=== PATIENT | male | born 1945 | race African-American/Black ===

== ENCOUNTER → 2016-10-14 | Outpatient (CLI) | payer MEDICARE, OTHER ==
[~2016-10-14] MED LIST: REGADENOSON 0.4 MG/5 ML DISP.SYRIN. IV ONE
--- NOTE | 2016-10-14 11:23 | CARD ---
APPROVED REPORT EXAM: Two-dimensional and M-mode echocardiogram with Doppler and color Doppler. Other Information Quality : GoodHR: 64bpm Rhythm : NSR INDICATION Shortness of breath RISK FACTORS Hypertension Hyperlipidemia Family History 2D DIMENSIONS RVDd3.3 (2.9-3.5cm)Left Atrium(2D)3.4 (1.6-4.0cm) IVSd1.5 (0.7-1.1cm)Aortic Root(2D)3.4 (2.0-3.7cm) LVDd4.5 (3.9-5.9cm)LVOT Diameter2.3 (1.8-2.4cm) PWd1.2 (0.7-1.1cm)LVDs3.3 (2.5-4.0cm) FS (%) 28.0 %SV51.6 ml LVEF(%)54.4 (>50%) Aortic Valve AoV Peak Fredy.106.3cm/sAoV VTI24.9cm AO Peak GR.4.5mmHgLVOT Peak Fredy.87.8cm/s AO Mean GR.3mmHgAVA (VMAX)3.53cm2 Mitral Valve MV E Fltplsrw91.9cm/sMV E Peak Gr.3mmHg MV DECEL [id number] A Raxqkjhp95.6cm/s MV E Mean Gr.1mmHgE/A Ratio0.9 MV A Zmhbkcls967hz Pulmonary Valve PV Peak Bijykqlq76.0cm/s Tricuspid Valve TR P. Gjynwatd940fj/sTR Peak Gr.23mmHg Pulmonary Vein S1 Gqlazdnl41.0cm/sD2 Mhblcwxp79.5cm/s PVa ikcvqpyg76nsje LEFT VENTRICLE The left ventricle is normal size. There is mild concentric left ventricular hypertrophy. The left ve ntricular systolic function is normal. The Ejection Fraction is 55-60%. There is normal LV segmental wall motion. Transmitral Doppler flow pattern is Grade I-abnormal relaxation pattern. RIGHT VENTRICLE The right ventricle is normal size. There is normal right ventricular wall thickness. The right ventr icular systolic function is normal. ATRIA The left atrium size is normal. The right atrium size is normal. The interatrial septum is intact wit h no evidence for an atrial septal defect or patent foramen ovale as noted on 2-D or Doppler imaging. AORTIC VALVE The aortic valve is mildly sclerotic. The aortic valve is trileaflet. Doppler and Color Flow revealed no significant aortic regurgitation. There is no significant aortic valvular stenosis. MITRAL VALVE Mitral annular calcification is mild. The mitral valve leaflets are thickened. There is no evidence o f mitral valve prolapse. There is no mitral valve stenosis. Doppler and Color Flow revealed mild mitr al regurgitation. TRICUSPID VALVE Doppler and Color Flow revealed trace tricuspid regurgitation. The pulmonary artery systolic pressure is estimated at 26 mmHg. There is no pulmonary hypertension. PULMONIC VALVE Doppler and Color Flow revealed mild pulmonic valvular regurgitation. There is no pulmonic valvular s tenosis. GREAT VESSELS The aortic root is normal in size. The ascending aorta is normal in size. The pulmonary artery is nor mal. The IVC is normal in size and collapses >50% with inspiration. PERICARDIAL EFFUSION There is no evidence of significant pericardial effusion. Critical Notification Critical Value: No <Conclusion> The left ventricular systolic function is normal. The Ejection Fraction is 55-60%. There is normal LV segmental wall motion. Transmitral Doppler flow pattern is Grade I-abnormal relaxation pattern. Mild mitral regurgitation. Trace tricuspid regurgitation. The pulmonary artery systolic pressure is estimated at 26 mmHg. There is no evidence of significant pericardial effusion.
--- NOTE | 2016-10-14 15:06 | RAD ---
APPROVED REPORT Test Type: Pharmacological Stress Nurse/Tech: dustin pack Test Indications: CHEST PAIN Cardiac History: HTN, SEE EHR Medications: SEE EHR Medical History: PAST SMOKER, SEE EHR Resting ECG: SR Resting Heart Rate: 60 bpm Resting Blood Pressure: 150/72mmHg Pretest Chest Pain: No chest pain Nurse/Tech Notes LUNG SOUNDS CLEAR, S1S2 WNL. Consent: The procedure was explained to the patient in lay terms. Informed consent was witnessed. Luis eout was entered into [employer]. History and Stress Test performed by RT Devyn CarpenterR) (N) Pharm. Details Pharmacologic stress testing was performed using 0.4mg per 5ml of regadenoson given intravenously ove r 7-10 seconds. Stress Symptoms NONE STATED. POST EXERCISE Reason for Termination: Infusion complete Max HR: 89 bpm Max Blood Pressure: 150/72mmHg Chest Pain: No. Arrhythmia: No. ST Change: No. INTERPRETATION Stress EKG Conclusion: Baseline EKG showed sinus rhythm with left ventricular hypertrophy. Nondiagnos tic changes at peak stress. No arrhythmias. Imaging Protocol IMAGE PROTOCOL: Rest Tc-99m/stress Tc-99m 1 day Rest: Stress: Viability: Radiopharm.Tc99m NhuvwgbcfUv42t Sestamibi Dose10.2mCi 34.2mCi Duration 15min. 10min. Img Date 10/14/2016 10/14/2016 Inj-Img Ooxn12zld. 90min. Rest Admin Site:IV - Left AntecubitalAdministrator:RT Jayden (R)(N) Stress Admin Site: IV - Left AntecubitalAdministrator: RT Jayden (R)(N) STRESS DATA End Diast. Vol.101.0mlAv. Heart Rate80.0bpm End Syst. Vol.38.0mlCO Index BSA0.0L/min Myocardial Jqsq440.0gEject. Wjlpfxdn67.0% Stress Rates Pk. Fill Rate2.26EDV/secLVtime Pk. Fill 175.55msec Pk. Empty Rate4.31ESV/secLVtime Pk. Aujqo147.45msec 03/24 Pk. Fill0.62EDV/sec Stress Scores Regional WT1.00Summed WT10.00 Regional WM0.00Summed WM5.00 Study quality was good. Left Ventricular size was Normal at Rest and Stress. LV Perfusion Scintigraphic images showed moderate reversible defect involving the lateral wall extending into the basal inferior and inferolateral castelan consistent with ischemia. Wall Motion Normal left ventricle systolic function with ejection fraction calculated at 62%. LV Perf. Quant 17 Seg. SSS17.00 17 Seg. SRS10.00 17 Seg. SDS7.00 Stress Defect Extent (% LAD)0.60Rest Defect Extent (% LAD)0.00Rev. Defect Extent (% LAD)0.60 Stress Defect Extent (% LCX) 87.50Rest Defect Extent (% LCX)65.00Rev. Defect Extent (% LCX)62.50 Stress Defect Extent (% RCA)21.10Rest Defect Extent (% RCA)6.70Rev. Defect Extent (% RCA)5.60 Stress Defect Extent (% JULIANA)31.30Rest Defect Extent (% JULIANA)15.40Rev. Defect Extent (% JULIANA)21.30 Conclusion 1. Regadenoson cardioisotope stress test showed moderate amount of ischemia involving the lateral wal l extending into the basal inferior and inferolateral castelan. 2. Normal left ventricular systolic function with ejection fraction calculated at 62%. 3. Intermediate risk for cardiac events.
== END | disposition home or self-care (01) ==
LOC: ECHO 08:04
PROVIDERS: ATTEND Internal Medicine Cardiovascular Disease
DX: I08.1 Rheumatic disorders of both mitral and tricuspid valves (principal); R06.02 Shortness of breath
CPT/HCPCS: 78452; 93017; 93306; 96374; 96375; 96376; A9500; J2785

== ENCOUNTER → 2016-11-20 | Outpatient (CLI) | payer MEDICARE, OTHER ==
[2016-11-18 15:00] VITALS: BP 129/55
[~2016-11-20] MED LIST changes: +ASPI-630 PO; +ASPI325T11 PO; +ATOR20TA58 PO; +CHOL10003 PO; +FURO20TA3 PO; +METO25TA4 PO; +OMEP40CA5 PO; +OXYC1TAB7 PO; +POTA20TA4 PO; -REGADENOSON 0.4 MG/5 ML DISP.SYRIN. IV ONE; +VALS1TAB3 PO
[2016-11-20 07:54] LABS: BASO % 0 % (0-3); EOS % 3 % (0-3); HEMOGLOBIN 7.3 g/dL (13.0-17.5); LYMPH # 0.6 x10^3/uL (1.0-4.8); LYMPH % 9 % (24-48); MEAN CORPUSCULAR HEMOGLOBIN 28 pg (25-35); MEAN CORPUSCULAR HGB CONC 32 g/dL (31-37); MEAN CORPUSCULAR VOLUME 90 fL (79-100); MONO % 12 % (0-9); NEUT % 76 % (31-73); PLATELET COUNT 336 x10^3/uL (140-400); RED BLOOD COUNT 2.57 x10^6/uL (4.30-5.70); RED CELL DISTRIBUTION WIDTH 13.2 % (11.5-14.5); WHITE BLOOD COUNT 7.4 x10^3/uL (4.0-11.0)
[2016-11-20 08:09] LABS: ALBUMIN 2.6 g/dL (3.4-5.0); ALBUMIN/GLOBULIN RATIO 0.7 (1.0-1.7); CALCIUM 7.9 mg/dL (8.5-10.1); CREATININE 1.3 mg/dL (0.7-1.3); GFR 65.5; POTASSIUM 3.4 mmol/L (3.5-5.1); TOTAL BILIRUBIN 0.8 mg/dL (0.2-1.0); TOTAL PROTEIN 6.6 g/dL (6.4-8.2)
== END ==
LOC: SPEC 07:24
PROVIDERS: ATTEND Family Medicine
DX: I25.10 Atherosclerotic heart disease of native coronary artery without angina pectoris (principal); Z79.899 Other long term (current) drug therapy
CPT/HCPCS: 36415; 80053; 85025

== ENCOUNTER → 2016-12-04 | Outpatient (CLI) | payer MEDICARE, OTHER ==
[2016-11-18 15:00] VITALS: BP 129/55
--- NOTE | 2016-12-04 13:26 | RAD ---
Indication postop. Protocol study. Frontal and lateral views of the chest were obtained. Comparison is made to an exam 11/16/2016. Postoperative changes are noted. Heart size is slightly enlarged but unchanged. There is no congestive heart failure. Aeration of the lungs has improved. No unexpected finding is seen. No acute parenchymal infiltrate is apparent. There is no pleural fluid or pneumothorax. IMPRESSION: No acute finding seen in the chest
== END | disposition home or self-care (01) ==
LOC: RAD 12:41
PROVIDERS: ATTEND Thoracic Surgery (Cardiothoracic Vascular Surgery)
DX: Z01.818 Encounter for other preprocedural examination (principal); Z95.1 Presence of aortocoronary bypass graft
CPT/HCPCS: 71020

== ENCOUNTER → 2017-07-15 | Day surgery (SDC) | payer MEDICARE, OTHER ==
[~2017-07-15] MED LIST changes: -ASPI-630 PO; -ASPI325T11 PO; -ATOR20TA58 PO; -CHOL10003 PO; -FURO20TA3 PO; +LIDOCAINE 1% PF 2 ML VIAL. ID; +LIDOCAINE 2% PF Vial for OR 5 ML VIAL.; -METO25TA4 PO; +MORPHINE SULFATE 4 MG/ML DISP.SYRIN. IV; -OMEP40CA5 PO; +ONDANSETRON PF 4 MG/2 ML VIAL. IV; -OXYC1TAB7 PO; -POTA20TA4 PO; +PROCHLORPERAZINE 10 MG/2 ML VIAL. IV; +PROPOFOL 40 ML IV; -VALS1TAB3 PO; +fentaNYL PF VIAL 100 MCG/2 ML VIAL IV
[2017-07-15] MEDS: IV RINGERS,LACTATED 1000ML 1,000 ML IV (12:47)
== END | disposition home or self-care (01) ==
LOC: ENDOS 12:06
DX: K62.1 Rectal polyp (principal); K64.0 First degree hemorrhoids; K62.89 Other specified diseases of anus and rectum; K57.30 Diverticulosis of large intestine without perforation or abscess without bleeding; I10 Essential (primary) hypertension; E78.5 Hyperlipidemia, unspecified; J44.9 Chronic obstructive pulmonary disease, unspecified; K21.9 Gastro-esophageal reflux disease without esophagitis; D50.9 Iron deficiency anemia, unspecified; I25.10 Atherosclerotic heart disease of native coronary artery without angina pectoris; E78.00 Pure hypercholesterolemia, unspecified; Z79.82 Long term (current) use of aspirin; Z95.1 Presence of aortocoronary bypass graft; Z87.891 Personal history of nicotine dependence; Z82.49 Family history of ischemic heart disease and other diseases of the circulatory system; Z98.41 Cataract extraction status, right eye; Z98.42 Cataract extraction status, left eye; Z86.79 Personal history of other diseases of the circulatory system; Z95.5 Presence of coronary angioplasty implant and graft; M19.012 Primary osteoarthritis, left shoulder; M19.011 Primary osteoarthritis, right shoulder; M17.0 Bilateral primary osteoarthritis of knee; M19.042 Primary osteoarthritis, left hand; M19.041 Primary osteoarthritis, right hand
CPT/HCPCS: 45378; 45380; 88305; J2704

== ENCOUNTER → 2017-10-05 | Outpatient (CLI) | payer OTHER, MEDICARE ==
[2017-10-05 11:08] LABS: ADD MAN DIFF? NO
[2017-10-05 11:14] LABS: BASO % 1 % (0-3); EOS # 0.1 x10^3/uL (0.0-0.7); EOS % 3 % (0-3); HEMATOCRIT 32.8 % (39.0-53.0); HEMOGLOBIN 10.5 g/dL (13.0-17.5); LYMPH # 0.5 x10^3/uL (1.0-4.8); LYMPH % 9 % (24-48); MEAN CORPUSCULAR HEMOGLOBIN 25 pg (25-35); MEAN CORPUSCULAR HGB CONC 32 g/dL (31-37); MEAN CORPUSCULAR VOLUME 77 fL (79-100); MONO # 0.7 x10^3/uL (0.0-1.1); MONO % 12 % (0-9); NEUT # 4.4 x10^3uL (1.8-7.7); NEUT % 77 % (31-73); PLATELET COUNT 328 x10^3/uL (140-400); RED BLOOD COUNT 4.25 x10^6/uL (4.30-5.70); RED CELL DISTRIBUTION WIDTH 28.6 % (11.5-14.5); WHITE BLOOD COUNT 5.7 x10^3/uL (4.0-11.0)
[2017-10-05 11:31] LABS: ANION GAP 9 (6-14); BLOOD UREA NITROGEN 11 mg/dL (8-26); CALCIUM 8.6 mg/dL (8.5-10.1); CARBON DIOXIDE 26 mmol/L (21-32); CHLORIDE 102 mmol/L (98-107); CREATININE 1.6 mg/dL (0.7-1.3); GFR 51.4; GLUCOSE 96 mg/dL (70-99); POTASSIUM 4.3 mmol/L (3.5-5.1); SODIUM 137 mmol/L (136-145)
[2017-10-05 11:39] LABS: ANISOCYTOSIS MOD; PLT ESTIMATE ADEQUATE (ADEQUATE); POLYCHROMASIA PRESENT
== END | disposition home or self-care (01) ==
LOC: LAB 10:56
DX: I25.10 Atherosclerotic heart disease of native coronary artery without angina pectoris (principal); K92.2 Gastrointestinal hemorrhage, unspecified; I13.0 Hypertensive heart and chronic kidney disease with heart failure and stage 1 through stage 4 chronic kidney disease, or unspecified chronic kidney disease; I50.32 Chronic diastolic (congestive) heart failure; N18.3 Chronic kidney disease, stage 3 (moderate); E78.5 Hyperlipidemia, unspecified; E78.00 Pure hypercholesterolemia, unspecified; D64.9 Anemia, unspecified; J44.9 Chronic obstructive pulmonary disease, unspecified; E78.1 Pure hyperglyceridemia; K21.9 Gastro-esophageal reflux disease without esophagitis
CPT/HCPCS: 36415; 80048; 85025

== ENCOUNTER 2017-11-27 08:51 | Emergency (ER) | payer MEDICARE, OTHER ==
[~2017-11-27] VITALS: Ht 180.3 cm; Wt 87.6 kg
[~2017-11-27 08:51] MED LIST changes: +ASPI-612 PO; +ASPI-630 PO; +ASPI325T11 PO; +ASPI325T8 PO; +ATOR20TA58 PO; +ATOR40TA59 PO; +BUDE10.2 IH; +CHOL10003 PO; +FERR-36 PO; +FERR325T72 PO; +FURO20TA3 PO; +IPRA3AMP29 NEB; +ISOS30TA4 PO; -LIDOCAINE 1% PF 2 ML VIAL. ID; -LIDOCAINE 2% PF Vial for OR 5 ML VIAL.; +LOSA50TA2 PO; +METO10TA81 PO; +METO25TA4 PO; +METO50TA29 PO; -MORPHINE SULFATE 4 MG/ML DISP.SYRIN. IV; +NITR0.4T SL; +OMEP40CA5 PO; -ONDANSETRON PF 4 MG/2 ML VIAL. IV; +OXYC1TAB7 PO; +POTA20TA4 PO; +PROAIR HFA8.5 GM INH; -PROCHLORPERAZINE 10 MG/2 ML VIAL. IV; -PROPOFOL 40 ML IV; +Pantoprazole PO; +RANO500T2 PO; +TAMS0.4C97 PO; +TICA90TA PO; +TIOT18CA IH; +VALS1TAB3 PO; -fentaNYL PF VIAL 100 MCG/2 ML VIAL IV
[2017-11-27 08:55] VITALS: BP 142/78
[2017-11-27] MEDS ORDERED: ACETAMINOPHEN 500 MG TABLET PO ONE (09:15)
[2017-11-27] MEDS ORDERED: diazePAM 5 MG TABLET PO ONE (09:15)
[2017-11-27] MEDS ORDERED: DIAZ5TAB PO (09:26)
[2017-11-27] MEDS ORDERED: DICL100G18 TP (09:26)
--- NOTE | 2017-11-27 09:27 | PHYS DOC ---
Past Medical History Past Medical History: CAD, High Cholesterol, Hypertension Additional Past Medical Histor: possible [place] Past Surgical History: Coronary Bypass Surgery Additional Past Surgical Histo: right knee surgery, cardiac cath with stent Alcohol Use: None Drug Use: None Adult General Chief Complaint Chief Complaint: BACK PAIN - NO INJURY HPI HPI Patient is a 72 year old male with history of CAD, hypertension, high cholesterol, who presents today complaining of 7 out of 10 throbbing bilateral low back pain that has been going on intermittently for 6 days. Patient denies any known injury, denies any pain radiating to bilateral lower extremities. Denies any loss of bowel bladder function. Denies any weakness. He states the pain is worse on palpation of the lower back. He states he feels like he keeps getting spasms on and off. He states he has tried taking Tylenol with some relief. He states is also been using gypy-usn-vzoyqzz rubbing agents which are relieving his pain. PCP Fausto Padilla Review of Systems Review of Systems Constitutional: Denies fever or chills [] Eyes: Denies change in visual acuity, redness, or eye pain [] HENT: Denies nasal congestion or sore throat [] Respiratory: Denies cough or shortness of breath [] Cardiovascular: No additional information not addressed in HPI [] GI: Denies abdominal pain, nausea, vomiting, bloody stools or diarrhea [] : Denies dysuria or hematuria [] Musculoskeletal: Reports bilateral low back pain with spasms. Integument: Denies rash or skin lesions [] Neurologic: Denies headache, focal weakness or sensory changes [] ] All other systems were reviewed and found to be within normal limits, except as documented in this note. Current Medications Current Medications Current Medications Medications (Trade) Dose Ordered Sig/[facility] Start Time Stop Time Status Last Admin Dose Admin Acetaminophen (Tylenol) 1,000 mg 1X ONCE 11/27/17 09:15 11/27/17 09:16 DC Diazepam (Valium) 5 mg 1X ONCE 11/27/17 09:15 11/27/17 09:16 DC Allergies Allergies Allergies Coded Allergies Type Severity Reaction Last Updated Verified No Known Drug Allergies 07/15/17 No Physical Exam Physical Exam Constitutional: Well developed, well nourished, no acute distress, non-toxic appearance. [] HENT: Normocephalic, atraumatic, bilateral external ears normal, oropharynx moist, no oral exudates, nose normal. [] Eyes: PERRLA, EOMI, conjunctiva normal, no discharge. [] Neck: Normal range of motion, no tenderness, supple, no stridor. [] Cardiovascular:Heart rate regular rhythm, no murmur [] Lungs & Thorax: Bilateral breath sounds clear to auscultation [] Abdomen: Bowel sounds normal, soft, no tenderness, no masses, no pulsatile masses. [] Skin: Warm, dry, no erythema, no rash. [] Back: Diffuse paraspinal muscle tenderness bilateral lumbar spine, no midline lumbar spine tenderness, no CVA tenderness. [] Extremities: No tenderness, no cyanosis, no clubbing, ROM intact, no edema. [] Neurologic: Alert and oriented X 3, normal motor function, normal sensory function, no focal deficits noted. [] Psychologic: Affect normal, judgement normal, mood normal. [] Current Patient Data Vital Signs Vital Signs Date Time Temp Pulse Resp B/P (MAP) Pulse Ox O2 Delivery O2 Flow Rate FiO2 11/27/17 08:55 97.6 87 14 142/78 (99) 97 Room Air 97.6 EKG EKG [] Radiology/Procedures Radiology/Procedures [] Course & Med Decision Making Course & Med Decision Making Pertinent Labs and Imaging studies reviewed. (See chart for details) This is a 72-year-old male patient presented to the ED today with low back pain with spasms that has been going on for 6 days intermittently. Patient has no cauda equina syndrome symptoms. Patient to be discharged with Voltaren cream, Valium and instructed to continue taking Tylenol as needed for pain. Follow-up with primary care doctor in 1-2 weeks. Dragon Disclaimer Dragon Disclaimer This electronic medical record was generated, in whole or in part, using a voice recognition dictation system. Departure Departure Impression: Primary Impression: Low back pain Additional Impression: Spasm of muscle of lower back Disposition: 01 HOME, SELF-CARE Condition: STABLE Referrals: FAUSTO PADILLA MD (PCP) Follow-up next week Patient Instructions: Back Exercises, Generic, SportsMed, Back Pain, Adult Additional Instructions: You were evaluated in the emergency room for back pain with spasms. Continue taking Tylenol as needed for pain. Use the rest of the prescribed medications as ordered. Follow-up with your doctor next week. Come back to the ED at any point symptoms worsen. Scripts Diazepam (VALIUM) 5 Mg Tablet 5 MG PO TID, #15 TAB Prov: DORENE SANTOS APRN 11/27/17 Diclofenac Sodium (VOLTAREN) 100 Gm Gel..gram. 1 GM TP QID, #100 GM 2 Refills Prov: DORENE SANTOS APRN 11/27/17 Problem Qualifiers Primary Impression: Low back pain Chronicity: acute Back pain laterality: bilateral Sciatica presence: without sciatica Qualified Codes: M54.5 - Low back pain DORENE SANTOS APRN Nov 27, 2017 09:27
== END 2017-11-27 09:43 | disposition home or self-care (01) ==
LOC: ER 08:51
DX: M62.830 Muscle spasm of back (principal); E78.00 Pure hypercholesterolemia, unspecified; I10 Essential (primary) hypertension; I25.10 Atherosclerotic heart disease of native coronary artery without angina pectoris; I25.2 Old myocardial infarction; Z95.5 Presence of coronary angioplasty implant and graft; Z95.1 Presence of aortocoronary bypass graft
CPT/HCPCS: 99283

== ENCOUNTER 2018-02-21 11:42 | Emergency (ER) | payer MEDICARE, OTHER ==
[~2018-02-21] VITALS: Ht 180.3 cm; Wt 83.5 kg
[~2018-02-21 11:42] MED LIST changes: +DIAZ5TAB PO; +DICL100G18 TP; +LOSA-73 PO; -LOSA50TA2 PO
[2018-02-21] MEDS ORDERED: IV NORMAL SALINE 1000ML BAG 1,000 ML IV ONE (12:30)
--- NOTE | 2018-02-21 12:40 | EKG ---
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
[2018-02-21 12:42] LABS: BASO % 1 % (0-3); EOS # 0.2 x10^3/uL (0.0-0.7); EOS % 4 % (0-3); HEMATOCRIT 33.4 % (39.0-53.0); HEMOGLOBIN 11.2 g/dL (13.0-17.5); LYMPH # 0.4 x10^3/uL (1.0-4.8); LYMPH % 10 % (24-48); MEAN CORPUSCULAR HEMOGLOBIN 31 pg (25-35); MEAN CORPUSCULAR HGB CONC 34 g/dL (31-37); MEAN CORPUSCULAR VOLUME 93 fL (79-100); MONO # 0.5 x10^3/uL (0.0-1.1); MONO % 13 % (0-9); NEUT # 2.9 x10^3uL (1.8-7.7); NEUT % 72 % (31-73); PLATELET COUNT 239 x10^3/uL (140-400); RED BLOOD COUNT 3.58 x10^6/uL (4.30-5.70); RED CELL DISTRIBUTION WIDTH 13.9 % (11.5-14.5)
[2018-02-21 12:53] LABS: CREATININE 1.6 mg/dL (0.7-1.3); GFR 51.2; POTASSIUM 3.8 mmol/L (3.5-5.1)
[2018-02-21 12:58] LABS: ALBUMIN 3.9 g/dL (3.4-5.0); MAGNESIUM 1.8 mg/dL (1.8-2.4); TOTAL BILIRUBIN 0.7 mg/dL (0.2-1.0); TOTAL PROTEIN 7.9 g/dL (6.4-8.2)
--- NOTE | 2018-02-21 12:58 | PHYS DOC ---
Past Medical History Past Medical History: CAD, High Cholesterol, Hypertension Additional Past Medical Histor: possible [place], PAD Past Surgical History: Coronary Bypass Surgery Additional Past Surgical Histo: right knee surgery, cardiac cath with stent Smoking: Quit Less Than 1 Year Alcohol Use: None Drug Use: None Adult General Chief Complaint Chief Complaint: WEAKNESS/GENERALIZED HPI HPI Patient is a 73 year old male with past medical history of CAD, PAD, CKD, chronic anemia, and arthritis who presents with 2 days of increasing generalized weakness and heaviness in his legs. Patient notes he has had more difficulty moving between his bedroom and his front room and feels more short of breath and generalized heaviness in his legs when he is doing so. Patient denies any focal weakness, fevers or chills, abdominal pain, diarrhea, vomiting , chest pain. Patient notes he was admitted for similar symptoms at the end of November at which time the lower extremity arteriogram was done and showed significant peripheral arterial disease. There is some confusion as to whether a stent was placed at this time patient denies knowledge of any stent being placed then. Patient notes he has been compliant with his medications and denies any recent changes. Denies increased leg pain or swelling. Review of Systems Review of Systems Constitutional: Denies fever or chills [] Eyes: Denies change in visual acuity, redness, or eye pain [] HENT: Denies nasal congestion or sore throat [] Respiratory: Denies cough, notes shortness of breath[] Cardiovascular: Denies chest pain or palpitations[] GI: Denies abdominal pain, nausea, vomiting, bloody stools or diarrhea [] : Denies dysuria or hematuria [] Musculoskeletal: Notes back pain back pain and joint pain which is chronic in nature [] Integument: Denies rash or skin lesions [] Neurologic: Denies headache, focal weakness or sensory changes; reports generalized weakness Complete systems were reviewed and found to be within normal limits, except as documented in this note. Current Medications Current Medications Current Medications Medications (Trade) Dose Ordered Sig/[facility] Start Time Stop Time Status Last Admin Dose Admin Sodium Chloride 1,000 ml @ 1,000 mls/hr 1X ONCE 02/21/18 12:30 02/21/18 13:29 DC 02/21/18 13:07 1,000 MLS/HR Allergies Allergies Allergies Coded Allergies Type Severity Reaction Last Updated Verified No Known Drug Allergies 07/15/17 No Physical Exam Physical Exam Constitutional: Well developed, well nourished, no acute distress, non-toxic appearance. [] HENT: Normocephalic, atraumatic, oropharynx moist, nose normal. [] Eyes: PERRL, EOMI,, no discharge. [] Neck: Normal range of motion, no tenderness, supple. [] Cardiovascular:Heart rate regular rhythm, no murmur [] Lungs & Thorax: Bilateral breath sounds clear to auscultation [] Abdomen: Soft, no tenderness, nondistended, no pulsatile masses. [] Skin: Warm, dry, no erythema, no rash, well-healed midline thoracic CABG incision. [] Back: Lumbar spine paraspinal tenderness, no CVA tenderness. [] Extremities: No tenderness,, ROM intact, palpable bilateral dorsalis pedis pulses [] Neurologic: Alert and oriented X 3, normal motor function, normal sensory function, no focal deficits noted. [] Psychologic: Affect normal, judgement normal, mood normal. [] Current Patient Data Vital Signs Vital Signs Date Time Temp Pulse Resp B/P (MAP) Pulse Ox O2 Delivery O2 Flow Rate FiO2 02/21/18 16:21 66 02/21/18 15:51 95 02/21/18 14:23 18 02/21/18 12:03 97.7 133/70 (91) Room Air 97.7 Lab Values Laboratory Tests Test 02/21/18 12:10 02/21/18 12:55 02/21/18 15:30 White Blood Count 4.0 x10^3/uL (4.0-11.0) Red Blood Count 3.58 x10^6/uL (4.30-5.70) L Hemoglobin 11.2 g/dL (13.0-17.5) L Hematocrit 33.4 % (39.0-53.0) L Mean Corpuscular Volume 93 fL (79-100) Mean Corpuscular Hemoglobin 31 pg (25-35) Mean Corpuscular Hemoglobin Concent 34 g/dL (31-37) Red Cell Distribution Width 13.9 % (11.5-14.5) Platelet Count 239 x10^3/uL (140-400) Neutrophils (%) (Auto) 72 % (31-73) Lymphocytes (%) (Auto) 10 % (24-48) L Monocytes (%) (Auto) 13 % (0-9) H Eosinophils (%) (Auto) 4 % (0-3) H Basophils (%) (Auto) 1 % (0-3) Neutrophils # (Auto) 2.9 x10^3uL (1.8-7.7) Lymphocytes # (Auto) 0.4 x10^3/uL (1.0-4.8) L Monocytes # (Auto) 0.5 x10^3/uL (0.0-1.1) Eosinophils # (Auto) 0.2 x10^3/uL (0.0-0.7) Basophils # (Auto) 0.0 x10^3/uL (0.0-0.2) Sodium Level 139 mmol/L (136-145) Potassium Level 3.8 mmol/L (3.5-5.1) Chloride Level 102 mmol/L (98-107) Carbon Dioxide Level 26 mmol/L (21-32) Anion Gap 11 (6-14) Blood Urea Nitrogen 15 mg/dL (8-26) Creatinine 1.6 mg/dL (0.7-1.3) H Estimated GFR (Cockcroft-Gault) 51.2 BUN/Creatinine Ratio 9 (6-20) Glucose Level 112 mg/dL (70-99) H Calcium Level 9.0 mg/dL (8.5-10.1) Magnesium Level 1.8 mg/dL (1.8-2.4) Total Bilirubin 0.7 mg/dL (0.2-1.0) Aspartate Amino Transferase (AST) 14 U/L (15-37) L Alanine Aminotransferase (ALT) 20 U/L (16-63) Alkaline Phosphatase 77 U/L (46-116) Creatine Kinase 129 U/L (39-308) Creatine Kinase MB (Mass) 0.8 ng/mL (0.0-3.6) Creatine Kinase MB Relative Index 0.6 % (0-4) Troponin I Quantitative < 0.017 ng/mL (0.000-0.055) DD-Bqw-Q-Type Natriuretic Peptide 343 pg/mL (0-449) Total Protein 7.9 g/dL (6.4-8.2) Albumin 3.9 g/dL (3.4-5.0) Albumin/Globulin Ratio 1.0 (1.0-1.7) Lactic Acid Level 1.2 mmol/L (0.4-2.0) Urine Collection Type U cath Urine Color Kandace Urine Clarity Clear Urine pH 6.5 Urine Specific [place] 1.020 Urine Protein Negative mg/dL (NEG-TRACE) Urine Glucose (UA) Negative mg/dL (NEG) Urine Ketones (Stick) Negative mg/dL (NEG) Urine Blood Negative (NEG) Urine Nitrite Negative (NEG) Urine Bilirubin Small (NEG) Urine Urobilinogen Dipstick 2.0 mg/dL (0.2 mg/dL) Urine Leukocyte Esterase Trace (NEG) Urine RBC Rare /HPF (0-2) Urine WBC Rare /HPF (0-4) Urine Transitional Epithelial Cells Occ /LPF Urine Bacteria 0 /HPF (0-FEW) Urine Mucus Slight /LPF Laboratory Tests 02/21/18 12:10 Laboratory Tests 02/21/18 12:10 EKG EKG Heart rate 72, AL 194, QTc 415. No STEMI. EKG unchanged from previous EKG done on 12/14/17. [] Radiology/Procedures Radiology/Procedures PROCEDURE: CHEST AP ONLY Portable chest, 02/21/2018: HISTORY: Weakness Comparison is made to a study from 12/14/2017. There has been a previous median sternotomy. The heart size and pulmonary vascularity are normal. No pulmonary infiltrate is seen. There is no evidence of pleural fluid. IMPRESSION: No acute cardiopulmonary abnormality is detected. Electronically signed by: Denis Aviles MD (02/21/2018 1:38 PM) [facility] PROCEDURE: CT HEAD WO CONTRAST CT HEAD WO CONTRAST Indication: weakness, dizziness
PREVIOUS . Exposure: One or more of the following individualized dose reduction techniques were utilized for this examination: 1. Automated exposure control 2. Adjustment of the mA and/or kV according to patient size 3. Use of iterative reconstruction technique. Comparison: 12/14/2017 Contrast: None FINDINGS: Posterior fossa is unremarkable. No evidence of acute intracranial hemorrhage or abnormal extra-axial fluid collection. No evidence of mass effect or midline shift. Low-density in the white matter bilaterally, a nonspecific finding, but which is commonly due to chronic small vessel ischemic disease in a patient of this age. Prominence of ventricles and sulci, compatible with involutional change or atrophy. Intracranial arterial calcifications are identified. Visualized orbits are unremarkable. Visualized paranasal sinuses and mastoids are clear. No acute calvarial abnormality. Impression:Chronic findings as detailed above. Negative for acute intracranial hemorrhage or mass effect. Course & Med Decision Making Course & Med Decision Making 73-year-old male presenting with 2 days of generalized weakness. Patient notes he has decreased ability to exert himself due to increased shortness of air and increased heaviness in his legs. Patient has been compliant with his Brilinta and aspirin anticoagulation regimen. EKG shows no changes from previous. Chest x -ray shows no evidence of volume overload or acute infiltrate. Orthostatic blood pressure testing negative. Labs collected, evaluated, and posted to chart. Creatinine baseline per [facility] review. Cardiac etiology for weakness unlikely due to no evidence of CHF on chest x-ray and physical exam, no change in EKG, and negative cardiac enzymes. CT head without acute process. Patient offered admission for further evaluation. Patient declines and requesting to go home. Patient stable for discharge with outpatient follow-up with PCP. Discussed findings and plan with patient and family, who acknowledge understanding and agreement. [] Dragon Disclaimer Dragon Disclaimer This electronic medical record was generated, in whole or in part, using a voice recognition dictation system. Departure Departure Impression: Primary Impression: Generalized weakness Disposition: 01 HOME, SELF-CARE Condition: STABLE Referrals: FAUSTO PADILLA MD (PCP) AIDA LOMELI II, MD Patient Instructions: Weakness, [id number] TEJAL MANDEL DO Feb 21, 2018 12:58
--- NOTE | 2018-02-21 13:42 | RAD ---
Portable chest, 02/21/2018: HISTORY: Weakness Comparison is made to a study from 12/14/2017. There has been a previous median sternotomy. The heart size and pulmonary vascularity are normal. No pulmonary infiltrate is seen. There is no evidence of pleural fluid. IMPRESSION: No acute cardiopulmonary abnormality is detected. Electronically signed by: Denis Aviles MD (02/21/2018 1:38 PM) [facility]
--- NOTE | 2018-02-21 13:47 | RAD ---
CT HEAD WO CONTRAST Indication: weakness, dizziness
PREVIOUS . Exposure: One or more of the following individualized dose reduction techniques were utilized for this examination: 1. Automated exposure control 2. Adjustment of the mA and/or kV according to patient size 3. Use of iterative reconstruction technique. Comparison: 12/14/2017 Contrast: None FINDINGS: Posterior fossa is unremarkable. No evidence of acute intracranial hemorrhage or abnormal extra-axial fluid collection. No evidence of mass effect or midline shift. Low-density in the white matter bilaterally, a nonspecific finding, but which is commonly due to chronic small vessel ischemic disease in a patient of this age. Prominence of ventricles and sulci, compatible with involutional change or atrophy. Intracranial arterial calcifications are identified. Visualized orbits are unremarkable. Visualized paranasal sinuses and mastoids are clear. No acute calvarial abnormality. Impression:Chronic findings as detailed above. Negative for acute intracranial hemorrhage or mass effect. Electronically signed by: Clayton Pierson MD (02/21/2018 1:44 PM) [id number]
[2018-02-21 15:41] LABS: BILIRUBIN,URINE SMALL (NEG); CLARITY,URINE CLEAR; COLOR,URINE AMBER; NITRITE,URINE NEGATIVE (NEG); PH,URINE 6.5; PROTEIN,URINE NEGATIVE (NEG-TRACE)
[2018-02-21 16:04] LABS: BACTERIA,URINE 0 /HPF (0-FEW); RBC,URINE RARE /HPF (0-2); WBC,URINE RARE /HPF (0-4)
[2018-02-21 16:21] VITALS: BP 165/76
== END 2018-02-21 16:33 | disposition home or self-care (01) ==
LOC: ER 11:42
DX: R53.1 Weakness (principal); R06.02 Shortness of breath; R42 Dizziness and giddiness; I25.810 Atherosclerosis of coronary artery bypass graft(s) without angina pectoris; E78.00 Pure hypercholesterolemia, unspecified; I10 Essential (primary) hypertension; Z87.891 Personal history of nicotine dependence
CPT/HCPCS: 36415; 70450; 71045; 80053; 81001; 82553; 83605; 83735; 83880; 84484; 85025; 87086; 93005; 96360; 96361; 99284; J7030; P9612

== ENCOUNTER → 2018-03-18 | Outpatient (CLI) | payer MEDICARE, OTHER ==
[2018-02-21 16:21] VITALS: BP 165/76
[~2018-03-18] MED LIST changes: +ALBU2.5V8 INH; -PROAIR HFA8.5 GM INH
--- NOTE | 2018-03-18 12:18 | CARD ---
MR#: [id number] Date of Study: 03/18/2018 Ordering Physician: MARY ZIMMERMAN, Referring Physician: MARY ZIMMERMAN, Tech: Rupa Mera APPROVED REPORT EXAM: Two-dimensional and M-mode echocardiogram with Doppler and color Doppler. Other Information Quality : AverageHR: 72bpm INDICATION CAD RISK FACTORS Hypertension Hyperlipidemia Previous smoker (quit 4-5 months ago) 2D DIMENSIONS RVDd2.5 (2.9-3.5cm)Left Atrium(2D)3.7 (1.6-4.0cm) IVSd1.3 (0.7-1.1cm)Aortic Root(2D)4.0 (2.0-3.7cm) LVDd4.6 (3.9-5.9cm)LVOT Diameter2.2 (1.8-2.4cm) PWd1.1 (0.7-1.1cm)LVDs2.3 (2.5-4.0cm) FS (%) 49.3 %SV78.1 ml LVEF(%)80.7 (>50%) Aortic Valve AoV Peak Fredy.131.2cm/sAoV VTI22.1cm AO Peak GR.6.9mmHgLVOT Peak Fredy.92.3cm/s LVOT VTI 19.06cmAO Mean GR.4mmHg LAQUITA (VMAX)2.98ab3IQW (VTI)3.42cm2 Mitral Valve MV E Tfflfssi44.1cm/sMV DECEL DQUR424cd MV A Mazgrzvz48.1cm/sMV BJI29gj E/A Ratio0.9MVA (PHT)2.86cm2 TDI E/Lateral E'5.6E/Medial E'11.7 Pulmonary Valve PV Peak Sqecxfqd47.4cm/sPV Peak Grad.3mmHg Tricuspid Valve TR P. Gvsbelfb314ln/sRAP OASKDRKF3hfAt TR Peak Gr.91nxSpQRLH84azSu Pulmonary Vein S1 Maydvkfi76.8cm/sD2 Nfxvwyhe00.3cm/s PVa wqotbrny913pnid LEFT VENTRICLE The left ventricle is normal size. There is mild concentric left ventricular hypertrophy. The left ve ntricular sytolic function is normal. The Ejection Fraction is 55%. There is normal LV segmental wall motion. The left ventricular diastolic function and filling is normal for age. RIGHT VENTRICLE The right ventricle is normal size. There is normal right ventricular wall thickness. The right ventr icular systolic function is normal. ATRIA The left atrium size is normal. The right atrium size is normal. The interatrial septum is intact wit h no evidence for an atrial septal defect or patent foramen ovale as noted on 2-D or Doppler imaging. AORTIC VALVE The aortic valve is normal in structure and function. Doppler and Color Flow revealed no significant aortic regurgitation. There is no significant aortic valvular stenosis. MITRAL VALVE The mitral valve is normal in structure and function. There is no evidence of mitral valve prolapse. There is no mitral valve stenosis. Doppler and Color Flow revealed no mitral valve regurgitation note d. TRICUSPID VALVE The tricuspid valve is normal in structure and function. Doppler and Color Flow revealed trace tricus pid regurgitation. There is no tricuspid valve stenosis. PULMONIC VALVE Doppler and Color Flow revealed trace pulmonic valvular regurgitation. GREAT VESSELS The aortic root is mildly enlarged. The IVC was not well visualized. PERICARDIAL EFFUSION There is no evidence of significant pericardial effusion. Critical Notification Critical Value: No <Conclusion> The left ventricular sytolic function is normal. The Ejection Fraction is 55%. Doppler and Color Flow revealed trace tricuspid regurgitation. There is no evidence of significant pericardial effusion. Signed by : Kristopher Parrish, Electronically Approved : 03/18/2018 12:16:48
== END | disposition home or self-care (01) ==
LOC: ECHO 09:52
PROVIDERS: ATTEND Nurse Practitioner
DX: I25.708 Atherosclerosis of coronary artery bypass graft(s), unspecified, with other forms of angina pectoris (principal); I11.0 Hypertensive heart disease with heart failure; I50.9 Heart failure, unspecified; E78.49 Other hyperlipidemia; E78.00 Pure hypercholesterolemia, unspecified; Z79.899 Other long term (current) drug therapy; Z87.891 Personal history of nicotine dependence
CPT/HCPCS: 36415; 82306; 93306

== ENCOUNTER → 2018-03-23 | Outpatient (CLI) | payer MEDICARE, OTHER ==
[2018-02-21 16:21] VITALS: BP 165/76
--- NOTE | 2018-03-30 13:28 | SLEEP ---
DATE OF STUDY: 03/24/2018 Referred by Marguerite Niño. The patient is 73 years old with a BMI of 29. The patient's [place] score was 13. The patient underwent home sleep study performed by [facility]. Total recording time was 516 minutes. During the night study, the patient had 3 central apneas, 43 obstructive apneas and 52 mixed apneas and 53 hypopneas. The patient's apnea hypopnea index was 17.5 per hour. No supine sleep recorded. Oximetry study revealed a mean oxygen saturation of 91% with the lowest of 82%. 71 minutes were spent in oxygen saturation of less than 90%. Mean heart rate was 70 beats per minute. IMPRESSION: 1. Moderate sleep apnea-hypopnea syndrome at an AHI of 17.5 per hour. 2. Nocturnal hypoxia secondary to obstructive sleep apnea. RECOMMENDATIONS: 1. The patient would benefit from in-lab CPAP titration study. Alternate option would be home auto-titration study. 2. Weight loss is strongly advised. 3. Avoid [employer] depressants. 4. Caution regarding driving until symptoms of sleep apnea resolve with the above recommendations. SHAD BOWER MD DR: CAM/jake JOB#: [id number] / [id number] MARGUERITE Espinoza APRN
== END | disposition home or self-care (01) ==
LOC: RT 08:34
PROVIDERS: ATTEND Nurse Practitioner
DX: G47.33 Obstructive sleep apnea (adult) (pediatric) (principal); G47.34 Idiopathic sleep related nonobstructive alveolar hypoventilation
CPT/HCPCS: G0399

== ENCOUNTER → 2018-09-15 | Outpatient (CLI) | payer MEDICARE, OTHER ==
[~2018-09-15] MED LIST changes: +REGADENOSON 0.4 MG/5 ML DISP.SYRIN. IV ONE
[2018-09-15 10:03] LABS: BASO % 1 % (0-3); EOS # 0.1 x10^3/uL (0.0-0.7); EOS % 2 % (0-3); HEMATOCRIT 34.9 % (39.0-53.0); HEMOGLOBIN 11.5 g/dL (13.0-17.5); LYMPH # 0.7 x10^3/uL (1.0-4.8); LYMPH % 13 % (24-48); MEAN CORPUSCULAR HEMOGLOBIN 30 pg (25-35); MEAN CORPUSCULAR HGB CONC 33 g/dL (31-37); MEAN CORPUSCULAR VOLUME 92 fL (79-100); MONO # 0.6 x10^3/uL (0.0-1.1); MONO % 11 % (0-9); NEUT # 3.7 x10^3uL (1.8-7.7); NEUT % 73 % (31-73); PLATELET COUNT 248 x10^3/uL (140-400); RED BLOOD COUNT 3.79 x10^6/uL (4.30-5.70); RED CELL DISTRIBUTION WIDTH 12.8 % (11.5-14.5); WHITE BLOOD COUNT 5.1 x10^3/uL (4.0-11.0)
[2018-09-15 10:32] LABS: ALBUMIN 4.1 g/dL (3.4-5.0); CREATININE 1.6 mg/dL (0.7-1.3); DIRECT BILIRUBIN 0.3 mg/dL (0.0-0.2); GFR 51.2; POTASSIUM 4.3 mmol/L (3.5-5.1); TOTAL BILIRUBIN 0.8 mg/dL (0.2-1.0); TOTAL PROTEIN 7.7 g/dL (6.4-8.2)
[2018-09-15 10:34] LABS: CHOLESTEROL/HDL RATIO 3.5
--- NOTE | 2018-09-15 13:48 | RAD ---
MR#: [id number] Date of Study: 09/15/2018 Ordering Physician: GABY TROTTER, Referring Physician: HASEEB HEARN Tech: LOVE Elise ARRT (R) (N) APPROVED REPORT Test Type: Pharmacological Stress Nurse/Tech: Erica Marte R.N. Test Indications: S/P CABG Cardiac History: CABG, Stents, HTN Medications: See Electronic Medical Record Medical History: See Electronic Medical Record Resting ECG: SR w/ inverted T waves in leads I, AVL, V2-V6. ST depression in leads V2-V6 Resting Heart Rate: 67 bpm Resting Blood Pressure: 113/59mmHg Pretest Chest Pain: No chest pain Nurse/Tech Notes S1S2, lungs CTA Consent: The procedure was explained to the patient in lay terms. Informed consent was witnessed. Luis eout was entered into [employer]. History and Stress Test performed by RT Debo (R) (N) Pharm. Details Pharmacologic stress testing was performed using 0.4mg per 5ml of regadenoson given intravenously ove r 7-10 seconds. Stress Symptoms SOA POST EXERCISE Reason for Termination: Infusion complete Max HR: 89 bpm Max Blood Pressure: 105/48mmHg Blood Pressure response to exercise: Normal blood pressure response during stress. Heart Rate response to exercise: wnl Chest Pain: No. Arrhythmia: No. ST Change: Yes. see above abnormal baseline- deeper decreased ST waves INTERPRETATION Stress EKG Conclusion: Baseline EKG showed sinus rhythm with old inferior infarct and inferolateral S T depression and T wave inversion. Non-diagnostic changes at peak stress. No arrhythmias. Imaging Protocol IMAGE PROTOCOL: Rest Tc-99m/stress Tc-99m 1 day Rest: Stress: Viability: Radiopharm.Tc99m MrecbvrucXc55l Sestamibi Cjji60jYa 33mCi Img Date 09/15/2018 09/15/2018 Inj-Img Mibe41wnv. 60min. Rest Admin Site:IV - Right AntecubitalAdministrator:LOVE Elise ARRT (R)(N) Stress Admin Site: IV - Right AntecubitalAdministrator: Guille Leblanc, RT (R)(N) STRESS DATA End Diast. Vol.93.0mlAv. Heart Rate76.0bpm End Syst. Vol.26.0mlCO Index BSA5.1L/min Myocardial Xloh523.0gEject. Xdulvxns51.0% Stress Rates Pk. Fill Rate2.78EDV/secLVtime Pk. Fill 198.58msec Pk. Empty Rate3.74ESV/secLVtime Pk. Prwlu064.90msec 03/24 Pk. Fill1.48EDV/sec Stress Scores Regional WT2.00Summed WT12.00 Regional WM0.00Summed WM4.00 LV Perfusion Scintigraphic images showed large predominantly fixed defect involving the base to mid inferior and i nferolateral castelan extending into the distal lateral wall consistent with previous myocardial infarct ion with small amount of reversibility consistent with fernando-infarct ischemia. Wall Motion Basal inferior wall hypokinesis with ejection fraction calculated at 72%. LV Perf. Quant 17 Seg. SSS17.00 17 Seg. SRS13.00 17 Seg. SDS4.00 Stress Defect Extent (% LAD)0.00Rest Defect Extent (% LAD)0.00Rev. Defect Extent (% LAD)0.00 Stress Defect Extent (% LCX) 80.00Rest Defect Extent (% LCX)67.50Rev. Defect Extent (% LCX)80.00 Stress Defect Extent (% RCA)31.10Rest Defect Extent (% RCA)12.20Rev. Defect Extent (% RCA)18.90 Stress Defect Extent (% JULIANA)29.80Rest Defect Extent (% JULIANA)18.30Rev. Defect Extent (% JULIANA)26.30 Conclusion 1. Regadenoson cardioisotope stress test showed large infarct involving the base to mid inferior and inferolateral castelan extending into the distal lateral wall with small amount of fernando-infarct ischemia . 2. Basal inferior wall hypokinesis with ejection fraction calculated at 72%. 3. Low to intermediate risk for cardiac events. Signed by : Kristopher Parrish, Electronically Approved : 09/15/2018 13:48:37
== END | disposition home or self-care (01) ==
LOC: NM 15:34
PROVIDERS: ATTEND Internal Medicine Cardiovascular Disease
DX: I21.19 ST elevation (STEMI) myocardial infarction involving other coronary artery of inferior wall (principal); I25.119 Atherosclerotic heart disease of native coronary artery with unspecified angina pectoris; I10 Essential (primary) hypertension; Z95.1 Presence of aortocoronary bypass graft; Z95.5 Presence of coronary angioplasty implant and graft
CPT/HCPCS: 36415; 78452; 80048; 80061; 80076; 83735; 85025; 93017; A9500; J2785

== ENCOUNTER 2018-11-02 11:06 | Observation (INO) | payer MEDICARE, OTHER ==
[~2018-11-02] VITALS: Ht 180.3 cm; Wt 87.1 kg
[~2018-11-02 11:06] MED LIST changes: -REGADENOSON 0.4 MG/5 ML DISP.SYRIN. IV ONE
[2018-11-02 12:00] LABS: BASO % 1 % (0-3); EOS # 0.1 x10^3/uL (0.0-0.7); EOS % 2 % (0-3); HEMATOCRIT 33.7 % (39.0-53.0); LYMPH # 0.5 x10^3/uL (1.0-4.8); LYMPH % 14 % (24-48); MEAN CORPUSCULAR HEMOGLOBIN 31 pg (25-35); MEAN CORPUSCULAR HGB CONC 33 g/dL (31-37); MEAN CORPUSCULAR VOLUME 94 fL (79-100); MONO # 0.5 x10^3/uL (0.0-1.1); MONO % 14 % (0-9); NEUT # 2.6 x10^3/uL (1.8-7.7); NEUT % 69 % (31-73); PLATELET COUNT 240 x10^3/uL (140-400); RED BLOOD COUNT 3.61 x10^6/uL (4.30-5.70); RED CELL DISTRIBUTION WIDTH 13.5 % (11.5-14.5); WHITE BLOOD COUNT 3.7 x10^3/uL (4.0-11.0)
--- NOTE | 2018-11-02 12:04 | RAD ---
PORTABLE CHEST 1V INDICATION: Weakness, dyspnea. COMPARISON STUDY: 02/21/2018. FINDINGS: Lungs: Normal lung volume. No pulmonary mass or consolidation. The tracheobronchial tree and hilar structures are normal. Pleura: No pleural effusion or pneumothorax. Heart and Mediastinum: Stable cardiomediastinal silhouette and great vessels. CABG. Bones and Soft Tissues: The bones and soft tissues are stable. IMPRESSION: No acute cardiopulmonary process. Electronically signed by: Stephen Sterling MD (11/02/2018 12:01 PM) [facility]
[2018-11-02 12:10] LABS: CALCIUM 8.7 mg/dL (8.5-10.1); CREATININE 1.7 mg/dL (0.7-1.3); GFR 47.8; POTASSIUM 4.2 mmol/L (3.5-5.1)
[2018-11-02 12:12] LABS: PROTHROMBIN TIME PATIENT 13.6 SEC (11.7-14.0)
--- NOTE | 2018-11-02 12:12 | PHYS DOC ---
Past Medical History Past Medical History: CAD, High Cholesterol, Hypertension Additional Past Medical Histor: possible ID, PAD Past Surgical History: Coronary Bypass Surgery Additional Past Surgical Histo: right knee surgery, cardiac cath with stent Alcohol Use: None Drug Use: None Adult General Chief Complaint Chief Complaint: MULTIPLE COMPLAINTS [facility] HPI Patient is a 73-year-old male, with a past history of coronary artery disease, as well as other medical problems, who presents to the emergency department for evaluation. He has been having increasing weakness and dyspnea on exertion for the past month, and went see his primary care provider today due to his weakness . His PCP was not in the office and he saw the PA, who told the patient that he had some abnormality with his heart, and sent him to the emergency department for evaluation. The patient denies any chest pain. He did have a stress test about 6 weeks ago, which has been reviewed. He does have some increasing dyspnea on exertion. He has also had some mild increase in his chronic pedal edema. He denies any orthopnea, cough, headache, black or bloody stools, dizziness or lightheadedness. He has not had any focal weakness. There are no alleviating or exacerbating factors to his symptoms, except as noted above. Review of Systems Review of Systems Constitutional: Denies fever or chills [] Eyes: Denies change in visual acuity, redness, or eye pain [] HENT: Denies nasal congestion or sore throat [] Respiratory: Denies cough does report shortness of breath and dyspnea on exerti on. [] Cardiovascular: No additional information not addressed in HPI [] GI: Denies abdominal pain, nausea, vomiting, bloody stools or diarrhea [] : Denies dysuria or hematuria [] Musculoskeletal: Denies back pain or joint pain [] Integument: Denies rash or skin lesions [] Neurologic: Denies headache, focal weakness or sensory changes [] Endocrine: Denies polyuria or polydipsia [] All other systems were reviewed and found to be within normal limits, except as documented in this note. Allergies Allergies Allergies Coded Allergies Type Severity Reaction Last Updated Verified No Known Drug Allergies 07/15/17 No Physical Exam Physical Exam PHYSICAL EXAM: CONSTITUTIONAL: Well developed, well nourished HEAD: normocephalic, atraumatic EENT: PERRL, EOMI. Conjunctivae normal color, sclerae non-icteric; moist mucous membranes. NECK: Supple, non-tender; no meningismus. LUNGS: Lungs CTA, breathing even and unlabored. Normal air movement. HEART: Regular rate and rhythm, no murmur CHEST: No deformity; non-tender ABDOMEN: The abdomen is soft, and non-tender, no masses or bruits. EXTREM: Normal ROM; no deformity, no calf tenderness. Normal pulses palpable in all extremities. There is mild bilateral pedal edema. SKIN: No rash; no diaphoresis NEURO: Alert; normal speech and cognition; CN's grossly intact; strength grossly intact without focal deficit. BACK: No CVA TTP. Current Patient Data Vital Signs Vital Signs Date Time Temp Pulse Resp B/P (MAP) Pulse Ox O2 Delivery O2 Flow Rate FiO2 11/02/18 14:29 56 20 155/79 (104) Room Air 95.0 11/02/18 11:07 97.6 95 97.6 Lab Values Laboratory Tests Test 11/02/18 11:47 White Blood Count 3.7 x10^3/uL (4.0-11.0) L Red Blood Count 3.61 x10^6/uL (4.30-5.70) L Hemoglobin 11.0 g/dL (13.0-17.5) L Hematocrit 33.7 % (39.0-53.0) L Mean Corpuscular Volume 94 fL (79-100) Mean Corpuscular Hemoglobin 31 pg (25-35) Mean Corpuscular Hemoglobin Concent 33 g/dL (31-37) Red Cell Distribution Width 13.5 % (11.5-14.5) Platelet Count 240 x10^3/uL (140-400) Neutrophils (%) (Auto) 69 % (31-73) Lymphocytes (%) (Auto) 14 % (24-48) L Monocytes (%) (Auto) 14 % (0-9) H Eosinophils (%) (Auto) 2 % (0-3) Basophils (%) (Auto) 1 % (0-3) Neutrophils # (Auto) 2.6 x10^3/uL (1.8-7.7) Lymphocytes # (Auto) 0.5 x10^3/uL (1.0-4.8) L Monocytes # (Auto) 0.5 x10^3/uL (0.0-1.1) Eosinophils # (Auto) 0.1 x10^3/uL (0.0-0.7) Basophils # (Auto) 0.0 x10^3/uL (0.0-0.2) Prothrombin Time 13.6 SEC (11.7-14.0) Prothrombin Time INR 1.1 (0.8-1.1) Sodium Level 141 mmol/L (136-145) Potassium Level 4.2 mmol/L (3.5-5.1) Chloride Level 103 mmol/L (98-107) Carbon Dioxide Level 29 mmol/L (21-32) Anion Gap 9 (6-14) Blood Urea Nitrogen 11 mg/dL (8-26) Creatinine 1.7 mg/dL (0.7-1.3) H Estimated GFR (Cockcroft-Gault) 47.8 BUN/Creatinine Ratio 6 (6-20) Glucose Level 110 mg/dL (70-99) H Calcium Level 8.7 mg/dL (8.5-10.1) Magnesium Level 2.0 mg/dL (1.8-2.4) Total Bilirubin 0.6 mg/dL (0.2-1.0) Aspartate Amino Transferase (AST) 17 U/L (15-37) Alanine Aminotransferase (ALT) 24 U/L (16-63) Alkaline Phosphatase 76 U/L (46-116) Troponin I Quantitative < 0.017 ng/mL (0.000-0.055) OQ-Mxm-C-Type Natriuretic Peptide 1336 pg/mL (0-449) H Total Protein 7.8 g/dL (6.4-8.2) Albumin 4.0 g/dL (3.4-5.0) Albumin/Globulin Ratio 1.1 (1.0-1.7) Thyroid Stimulating Hormone (TSH) 3.051 uIU/mL (0.358-3.74) Free Thyroxine 0.82 ng/dL (0.76-1.46) Laboratory Tests 11/02/18 11:47 Laboratory Tests 11/02/18 11:47 EKG EKG [Normal sinus rhythm at a rate of 65 beats for minute, left axis deviation, normal intervals, there is anterior/lateral ST depression and T-wave inversion, not significantly changed compared to patient's prior EKG.] Radiology/Procedures Radiology/Procedures [PROCEDURE: PORTABLE CHEST 1V PORTABLE CHEST 1V INDICATION: Weakness, dyspnea. COMPARISON STUDY: 02/21/2018. FINDINGS: Lungs: Normal lung volume. No pulmonary mass or consolidation. The tracheobronchial tree and hilar structures are normal. Pleura: No pleural effusion or pneumothorax. Heart and Mediastinum: Stable cardiomediastinal silhouette and great vessels. CABG. Bones and Soft Tissues: The bones and soft tissues are stable. IMPRESSION: No acute cardiopulmonary process.] Course & Med Decision Making Course & Med Decision Making Pertinent Labs and Imaging studies reviewed. (See chart for details) []Patient's condition remains stable. I discussed the case with Dr. Liriano, covering for the patient's PCP, who will admit the patient for further observation and cardiac evaluation. Dragon Disclaimer Dragon Disclaimer This electronic medical record was generated, in whole or in part, using a voice recognition dictation system. Departure Departure Impression: Primary Impression: KARIMI (dyspnea on exertion) Additional Impression: CAD (coronary artery disease) Disposition: ADMITTED INPATIENT Admitting Physician: Clayton Liriano Condition: STABLE Referrals: FAUSTO PADILLA MD (PCP) Problem Qualifiers NEERAJ ARCOS MD Nov 02, 2018 12:12
[2018-11-02 12:15] LABS: ALBUMIN/GLOBULIN RATIO 1.1 (1.0-1.7); TOTAL BILIRUBIN 0.6 mg/dL (0.2-1.0); TOTAL PROTEIN 7.8 g/dL (6.4-8.2)
--- NOTE | 2018-11-02 12:19 | EKG ---
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
[2018-11-02 12:23] LABS: FREE T4 0.82 ng/dL (0.76-1.46); THYROID STIM HORMONE (TSH) 3.051 uIU/mL (0.358-3.74)
[2018-11-02] MEDS ORDERED: NITROGLYCERIN SUBLINGUAL 0.4 MG BOTTLE OF 25. SL PRN (16:30)
[2018-11-02 17:19] LABS: BILIRUBIN,URINE NEGATIVE (NEG); CLARITY,URINE CLEAR; COLOR,URINE YELLOW; NITRITE,URINE NEGATIVE (NEG); PROTEIN,URINE NEGATIVE (NEG-TRACE)
[2018-11-02 17:27] LABS: BACTERIA,URINE 0 /HPF (0-FEW); RBC,URINE 0 /HPF (0-2); SPERM,URINE PRESENT /HPF; SQUAMOUS EPITHELIAL CELL,UR OCC /LPF; WBC,URINE 0 /HPF (0-4)
[2018-11-02] MEDS: FERROUS SULFATE 325 MG TABLET. PO SCH (17:47)
[2018-11-02] MEDS: METOCLOPRAMIDE 10 MG TABLET. PO SCH (17:49)
[2018-11-02] MEDS: DICLOFENAC SODIUM 1% TOPICAL GEL 100GM TUBE. TP SCH ×2 (17:50→20:42)
[2018-11-02 18:50] VITALS: BP 178/84
[2018-11-02] MEDS: RANOLAZINE 500 MG TAB.ER.12H PO SCH (20:43)
[2018-11-02] MEDS: TICAGRELOR 90 MG TABLET. PO SCH (20:44)
[2018-11-02] MEDS: METOPROLOL TART IMMED RELEASE 25 MG TABLET. PO SCH (20:44)
[2018-11-02] MEDS: ISOSORBIDE MONONITRATE ER 30 MG TAB.ER.24H PO SCH (20:45)
[2018-11-02] MEDS ORDERED: ATORVASTATIN CALCIUM 40 MG TABLET. PO SCH (21:00)
[2018-11-02] MEDS ORDERED: diazePAM 5 MG TABLET PO SCH (21:00)
[2018-11-02] MEDS ORDERED: diphenhydrAMINE HCL 25 MG CAPSULE PO PRN (22:30)
[2018-11-02] MEDS ORDERED: ACETAMINOPHEN 325 MG TABLET. PO PRN (22:30)
[2018-11-02 23:07] VITALS: BP 161/71
--- NOTE | 2018-11-02 23:31 | HP ---
ADMIT DATE: 11/02/2018 CHIEF COMPLAINT: Shortness of breath. HISTORY OF PRESENT ILLNESS AND HOSPITAL COURSE: The patient is a 73-year-old -Citizen Of [place] male who is followed by Cardiology and has had extensive evaluation including recent MPI showing large infarct, but preserved ejection fraction. He also has a small area of reversible ischemia, came to the office with progressive shortness of breath over the last month and progressive difficulty walking with legs feeling heavy. He came to the hospital with similar complaints and was found to have mild evidence of congestive heart failure with slightly increased BNP. Reviewing Cardiology notes, Cardiology was considering repeat MPI apparently, therefore the patient was admitted for Cardiology evaluation and repeat MPI if needed and/or cardiac catheterization. PAST MEDICAL HISTORY: Significant for: 1. Coronary artery disease, status post coronary artery bypass graft. 2. Recurrent congestive heart failure. 3. Hypertension. 4. Hyperlipidemia. 5. Reflux disease. 6. Anemia. 7. Chronic back pain with osteoarthritis. 8. Chronic renal insufficiency with baseline creatinine of 1.6. 9. Peripheral vascular disease with stent to superior femoral artery on the left. FAMILY HISTORY: Reveals heart disease, otherwise noncontributory. SOCIAL HISTORY: The patient does not smoke or use alcohol. PAST SURGICAL HISTORY: Significant for coronary artery bypass graft. REVIEW OF SYSTEMS: Significant for intermittent leg swelling, chronic and progressive shortness of breath. No cough, congestion or fever. No nausea or vomiting, no diarrhea. PHYSICAL EXAMINATION: GENERAL: This is a well-nourished, well-developed -Citizen [place] male, in no apparent distress. On my exam, he is alert and oriented x 3. His family is present. HEENT: Benign. NECK: Supple. CARDIAC: Regular rate and rhythm. LUNGS: Clear with few crackles in the bases. ABDOMEN: Soft, nontender. EXTREMITIES: There are 1+ pulses bilaterally with 1+ to 2+ pitting edema. NEUROLOGIC: Showed no unilateral findings. ASSESSMENT: 1. Acute on chronic diastolic congestive heart failure. 2. Coronary artery disease. 3. Progressive peripheral vascular disease. 4. Chronic renal insufficiency. 5. Anemia of chronic disease. PLAN: To proceed with rule out protocol, diurese the patient, consult Cardiology for further evaluation and possible discharge if stable. TEJAL JOHNSON MD DR: JACKIE/jake JOB#: [id number] / [id number]
[2018-11-03 03:53] VITALS: BP 160/70
[2018-11-03 04:49] LABS: BASO % 0 % (0-3); EOS # 0.1 x10^3/uL (0.0-0.7); EOS % 2 % (0-3); HEMATOCRIT 32.3 % (39.0-53.0); HEMOGLOBIN 10.8 g/dL (13.0-17.5); LYMPH # 0.5 x10^3/uL (1.0-4.8); LYMPH % 11 % (24-48); MEAN CORPUSCULAR HEMOGLOBIN 31 pg (25-35); MEAN CORPUSCULAR HGB CONC 33 g/dL (31-37); MEAN CORPUSCULAR VOLUME 93 fL (79-100); MONO # 0.6 x10^3/uL (0.0-1.1); MONO % 12 % (0-9); NEUT # 3.7 x10^3/uL (1.8-7.7); NEUT % 75 % (31-73); PLATELET COUNT 226 x10^3/uL (140-400); RED BLOOD COUNT 3.47 x10^6/uL (4.30-5.70); RED CELL DISTRIBUTION WIDTH 13.6 % (11.5-14.5)
[2018-11-03 05:03] LABS: CALCIUM 8.7 mg/dL (8.5-10.1); CREATININE 1.6 mg/dL (0.7-1.3); GFR 51.2; POTASSIUM 4.1 mmol/L (3.5-5.1)
[2018-11-03 07:00] VITALS: BP 191/86
[2018-11-03] MEDS ORDERED: PANTOPRAZOLE 40 MG TABLET.DR. PO SCH (07:30)
[2018-11-03] MEDS ORDERED: ASPIRIN CHEWABLE 81 MG TABLET. PO SCH (08:00)
[2018-11-03] MEDS: METOPROLOL TART IMMED RELEASE 25 MG TABLET. PO SCH (08:13)
[2018-11-03] MEDS: ISOSORBIDE MONONITRATE ER 30 MG TAB.ER.24H PO SCH (08:13)
[2018-11-03] MEDS: TICAGRELOR 90 MG TABLET. PO SCH (08:14)
[2018-11-03] MEDS: FERROUS SULFATE 325 MG TABLET. PO SCH (08:15)
[2018-11-03] MEDS: METOCLOPRAMIDE 10 MG TABLET. PO SCH ×2 (08:15→12:27)
[2018-11-03] MEDS: DICLOFENAC SODIUM 1% TOPICAL GEL 100GM TUBE. TP SCH ×2 (08:16→12:27)
[2018-11-03] MEDS: RANOLAZINE 500 MG TAB.ER.12H PO SCH (08:16)
[2018-11-03] MEDS ORDERED: CHOLECALCIFEROL (VITAMIN D3) 1,000 UNIT TABLET PO SCH (09:00)
[2018-11-03] MEDS ORDERED: TAMSULOSIN 0.4 MG CAP.ER.24H. PO SCH (09:00)
[2018-11-03] MEDS ORDERED: LOSARTAN POTASSIUM 50 MG TABLET. PO SCH (09:00)
--- NOTE | 2018-11-03 10:06 | PDOC2 ---
CARDIAC CONSULT DATE OF CONSULT Date of Consult DATE: 11/03/18 TIME: 10:00 REASON FOR CONSULT Reason for Consult: herman REFERRING PHYSICIAN Referring Physician: Oumar SOURCE Source: Chart review, Patient HISTORY OF PRESENT ILLNESS HISTORY OF PRESENT ILLNESS This is a pleasant 73 yo AA male admitted for complains of right back pain, shortness of breath and weakness. Reports that in the last 2 weeks he has been gradually getting weak. He has been progressively getting SOA and has progressed with exertion. Complains of right lower rib cage pain sharp that radiates to right arm. No recent falls or injury. No nausea vomiting, palpitations or diaphoresis but intermittently feels clammy. No fever or chills, intractable coughing. He has been complaint with his medications. His wt has been steady no significant wt loss or gain. He took NTG 2 times this week which relieved hi right back ribcage pain but this is also relieved by positional changes. PAST MEDICAL HISTORY Past Medical History Cardiovascular: CAD, CHF, HTN, Hyperlipidemia, PAD Pulmonary: No pertinent hx CENTRAL NERVOUS SYSTEM: Other (none) GI: GERD, Other (colon polyps) Heme/Onc: Anemia NOS (iron deficiency) Hepatobiliary: No pertinent hx Psych: No pertinent hx Musculoskeletal: low back pain, Osteoarthritis Rheumatologic: No pertinent hx Infectious disease: No pertinent hx ENT: No pertinent hx Renal/: Chronic renal insuff (stage 3) Endocrine: No pertinent hx Dermatology: No pertinent hx PAST SURGICAL HISTORY Past Surgical History CABG x4 LIND to LAD, SVG to RPL then to RPDA, SVG to OM1 , Other (ORIF RLE), colon polypectomy, PCI FAMILY HISTORY Family History: Heart Disease SOCIAL HISTORY Smoke: Quit ALCOHOL: none Drugs: None Lives: with Family CURRENT MEDICATIONS CURRENT MEDICATIONS Current Medications Medications (Trade) Dose Ordered Sig/Aiden Route PRN Reason Start Time Stop Time Status Last Admin Dose Admin Aspirin (Children'S Aspirin) 81 mg DAILYWBKFT PO 11/03/18 08:00 11/03/18 08:16 Atorvastatin Calcium (Lipitor) 40 mg QHS PO 11/02/18 21:00 11/02/18 20:45 Vitamin D (Vitamin D3) 2,000 unit DAILY PO 11/03/18 09:00 11/03/18 08:16 Diclofenac Sodium (Voltaren) 1 charissa QID TP 11/02/18 17:00 11/03/18 08:16 Ferrous Sulfate (Feosol) 325 mg BIDWMEALS PO 11/02/18 17:00 11/03/18 08:16 Isosorbide Mononitrate (Imdur) 30 mg BID PO 11/02/18 21:00 11/03/18 08:16 Losartan Potassium (Cozaar) 50 mg DAILY PO 11/03/18 09:00 11/03/18 08:16 Metoclopramide HCl (Reglan) 5 mg TIDAC PO 11/02/18 16:30 11/03/18 08:16 Metoprolol Tartrate (Lopressor) 25 mg BID PO 11/02/18 21:00 11/03/18 08:16 Ranolazine (Ranexa) 1,000 mg BID PO 11/02/18 21:00 11/03/18 08:16 Tamsulosin HCl (Flomax) 0.4 mg DAILY PO 11/03/18 09:00 11/03/18 08:16 Ticagrelor (Brilinta) 90 mg BID PO 11/02/18 21:00 11/03/18 08:16 Pantoprazole Sodium (Protonix) 40 mg DAILYAC PO 11/03/18 07:30 11/03/18 08:16 Acetaminophen (Tylenol) 650 mg PRN Q6HRS PRN PO MILD PAIN / TEMP 11/02/18 22:30 11/03/18 05:39 ALLERGIES ALLERGIES: Coded Allergies: No Known Drug Allergies (Unverified , 07/15/17) ROS Review of System 14 point ROS evaluated with pertinent positives noted per HPI PHYSICAL EXAM General: Alert, Oriented X3, Cooperative, No acute distress HEENT: Atraumatic, Mucous membr. moist/pink Lungs: Clear to auscultation, Normal air movement Heart: Regular rate (SR), Normal S1, Normal S2, No murmurs Abdomen: Soft, No tenderness Extremities: No cyanosis, No edema Skin: No breakdown, No significant lesion Neuro: Normal speech, Sensation intact Psych/Mental Status: Mental status NL, Mood NL MUSCULOSKELETAL: Osteoarthritic changes both hands VITALS/I&O VITALS/I&O: Vital Signs Date Time Temp Pulse Resp B/P (MAP) Pulse Ox O2 Delivery O2 Flow Rate FiO2 11/03/18 08:16 65 191/86 11/03/18 07:00 97.2 20 100 Room Air 97.2 11/02/18 14:29 95.0 I & O 11/02/18 11/02/18 11/03/18 14:59 22:59 06:59 Intake Total 100 ml 250 ml Output Total 650 ml Balance 100 ml -400 ml LABS Lab: Laboratory Tests Test 11/02/18 11:47 11/02/18 17:00 11/02/18 17:10 11/02/18 20:55 White Blood Count 3.7 x10^3/uL (4.0-11.0) L Red Blood Count 3.61 x10^6/uL (4.30-5.70) L Hemoglobin 11.0 g/dL (13.0-17.5) L Hematocrit 33.7 % (39.0-53.0) L Mean Corpuscular Volume 94 fL (79-100) Mean Corpuscular Hemoglobin 31 pg (25-35) Mean Corpuscular Hemoglobin Concent 33 g/dL (31-37) Red Cell Distribution Width 13.5 % (11.5-14.5) Platelet Count 240 x10^3/uL (140-400) Neutrophils (%) (Auto) 69 % (31-73) Lymphocytes (%) (Auto) 14 % (24-48) L Monocytes (%) (Auto) 14 % (0-9) H Eosinophils (%) (Auto) 2 % (0-3) Basophils (%) (Auto) 1 % (0-3) Neutrophils # (Auto) 2.6 x10^3/uL (1.8-7.7) Lymphocytes # (Auto) 0.5 x10^3/uL (1.0-4.8) L Monocytes # (Auto) 0.5 x10^3/uL (0.0-1.1) Eosinophils # (Auto) 0.1 x10^3/uL (0.0-0.7) Basophils # (Auto) 0.0 x10^3/uL (0.0-0.2) Prothrombin Time 13.6 SEC (11.7-14.0) Prothrombin Time INR 1.1 (0.8-1.1) Sodium Level 141 mmol/L (136-145) Potassium Level 4.2 mmol/L (3.5-5.1) Chloride Level 103 mmol/L (98-107) Carbon Dioxide Level 29 mmol/L (21-32) Anion Gap 9 (6-14) Blood Urea Nitrogen 11 mg/dL (8-26) Creatinine 1.7 mg/dL (0.7-1.3) H Estimated GFR (Cockcroft-Gault) 47.8 BUN/Creatinine Ratio 6 (6-20) Glucose Level 110 mg/dL (70-99) H Calcium Level 8.7 mg/dL (8.5-10.1) Magnesium Level 2.0 mg/dL (1.8-2.4) Total Bilirubin 0.6 mg/dL (0.2-1.0) Aspartate Amino Transferase (AST) 17 U/L (15-37) Alanine Aminotransferase (ALT) 24 U/L (16-63) Alkaline Phosphatase 76 U/L (46-116) Troponin I Quantitative < 0.017 ng/mL (0.000-0.055) < 0.017 ng/mL (0.000-0.055) < 0.017 ng/mL (0.000-0.055) OU-Elr-K-Type Natriuretic Peptide 1336 pg/mL (0-449) H Total Protein 7.8 g/dL (6.4-8.2) Albumin 4.0 g/dL (3.4-5.0) Albumin/Globulin Ratio 1.1 (1.0-1.7) Thyroid Stimulating Hormone (TSH) 3.051 uIU/mL (0.358-3.74) Free Thyroxine 0.82 ng/dL (0.76-1.46) Urine Collection Type Void Urine Color Yellow Urine Clarity Clear Urine pH 7.0 Urine Specific [place] 1.010 Urine Protein Negative mg/dL (NEG-TRACE) Urine Glucose (UA) Negative mg/dL (NEG) Urine Ketones (Stick) Negative mg/dL (NEG) Urine Blood Negative (NEG) Urine Nitrite Negative (NEG) Urine Bilirubin Negative (NEG) Urine Urobilinogen Dipstick 1.0 mg/dL (0.2 mg/dL) Urine Leukocyte Esterase Negative (NEG) Urine RBC 0 /HPF (0-2) Urine WBC 0 /HPF (0-4) Urine Squamous Epithelial Cells Occ /LPF Urine Bacteria 0 /HPF (0-FEW) Urine Sperm Present /HPF Test 8/15/19 04:00 White Blood Count 5.0 x10^3/uL (4.0-11.0) Red Blood Count 3.47 x10^6/uL (4.30-5.70) L Hemoglobin 10.8 g/dL (13.0-17.5) L Hematocrit 32.3 % (39.0-53.0) L Mean Corpuscular Volume 93 fL (79-100) Mean Corpuscular Hemoglobin 31 pg (25-35) Mean Corpuscular Hemoglobin Concent 33 g/dL (31-37) Red Cell Distribution Width 13.6 % (11.5-14.5) Platelet Count 226 x10^3/uL (140-400) Neutrophils (%) (Auto) 75 % (31-73) H Lymphocytes (%) (Auto) 11 % (24-48) L Monocytes (%) (Auto) 12 % (0-9) H Eosinophils (%) (Auto) 2 % (0-3) Basophils (%) (Auto) 0 % (0-3) Neutrophils # (Auto) 3.7 x10^3/uL (1.8-7.7) Lymphocytes # (Auto) 0.5 x10^3/uL (1.0-4.8) L Monocytes # (Auto) 0.6 x10^3/uL (0.0-1.1) Eosinophils # (Auto) 0.1 x10^3/uL (0.0-0.7) Basophils # (Auto) 0.0 x10^3/uL (0.0-0.2) Sodium Level 142 mmol/L (136-145) Potassium Level 4.1 mmol/L (3.5-5.1) Chloride Level 106 mmol/L (98-107) Carbon Dioxide Level 27 mmol/L (21-32) Anion Gap 9 (6-14) Blood Urea Nitrogen 13 mg/dL (8-26) Creatinine 1.6 mg/dL (0.7-1.3) H Estimated GFR (Cockcroft-Gault) 51.2 Glucose Level 97 mg/dL (70-99) Calcium Level 8.7 mg/dL (8.5-10.1) Laboratory Tests 11/02/18 11:47 11/03/18 04:00 Laboratory Tests 11/02/18 11:47 11/03/18 04:00 ECHOCARDIOGRAM ECHOCARDIOGRAM <Conclusion> The left ventricular sytolic function is normal. The Ejection Fraction is 55%. Doppler and Color Flow revealed trace tricuspid regurgitation. There is no evidence of significant pericardial effusion. DATE: 03/18/18 1216 STRESS TEST STRESS TEST Conclusion 1. Regadenoson cardioisotope stress test showed large infarct involving the base to mid inferior and inferolateral castelan extending into the distal lateral wall with small amount of fernando-infarct ischemia. 2. Basal inferior wall hypokinesis with ejection fraction calculated at 72%. 3. Low to intermediate risk for cardiac events. DATE: 09/15/18 1348 HEART CATH HEART CATH Findings. Hemodynamics. LV pressure of 138/22, aortic root pressure of 134/68. Coronaries. Left main. The left main had mild 10% distal lesion. Left anterior descending. The LAD had a mid occlusion. Left circumflex. The left circumflex is a moderately small vessel. It had a mid 80% lesion. It had occluded OM1 and OM 2 vessels as well as a Ramus occlusion. Right coronary artery. The right coronary was a moderate size vessel. It had diffuse disease in its mid and distal portion of up to 80%. In its distal portion the anastomosis to the vein graft which was a skip graft to the distal left circumflex system had a greater than 95% lesion. Grafts. LIND graft to the LAD was patent. Saphenous vein graft to the left circumflex system obtuse marginal branches was flush occluded. Saphenous vein graft to right coronary was chronically occluded. <Conclusion> Severe three-vessel coronary artery disease as above. Patent LIND graft to the LAD. Occluded vein graft to the obtuse marginal system. Occluded vein graft to the right coronary artery with a jump graft to the distal LCX system. Stent placement to the anastomosis of the right coronary artery to the distal vein graft. Three overlapping stents placed to the mid and distal right coronary artery. DATE: 08/09/17 1207 ASSESSMENT/PLAN ASSESSMENT/PLAN 1. Dyspnea: EKG virtually same as before. MPI recent as noted above. Will rule out PE vs occult ischemia. 2. CAD: past CABGx4 with RCA 3stents placement as noted on 07/2017 3. PAD: No claudications, no wounds. 4. HTN: controlled 5. HLP 6. CKD3 7. Atypical CP: to right lower ribcage alleviated by positional changes. He does have cholelithiasis 8. Fatigue Recommendations 1. Continue with secondary prevention 2. ASA. reports not taking effient any longer. 3. TTE, DDIMER, repeat EKG. Will consider V/Q is DDIMER is + FUENTES OVALLES DRAIN CLEANER Nov 03, 2018 10:06
[2018-11-03 11:00] VITALS: BP 156/83
--- NOTE | 2018-11-03 11:53 | EKG ---
[facility] [address] [place] [address] Test Date: 2018-11-03 Test Time: 11:12:26 Pat Name: HENRY GAVIN Department: Room: [facility] Gender: M Elevator Supervisor: ROSALINDA : 1945 Requested By: FUENTES OVALLES Order Number: [id number] Reading MD: Measurements Intervals [place] Rate: 61 P: 27 NM: 200 QRS: -26 QRSD: 86 T: -167 QT: 424 QTc: 428 Interpretive Statements SINUS RHYTHM LEFTWARD AXIS CONSIDER LEFT VENTRICULAR HYPERTROPHY QRS(T) CONTOUR ABNORMALITY CONSIDER ANTEROLATERAL MYOCARDIAL DAMAGE CONSISTENT WITH INFERIOR INFARCT AGE UNDETERMINED ST & T ABNORMALITY, CONSIDER ANTERIOR ISCHEMIA OR LEFT VENTRICULAR STRAIN ABNORMAL ECG RI6.01 Unconfirmed report No previous ECG available for comparison
[2018-11-03] MEDS ORDERED: TICA90TA PO (12:51)
--- NOTE | 2018-11-03 12:55 | SNU/HH DC ---
DISCHARGE ORDERS DISCHARGE INFORMATION: DISCHARGE DATE: Nov 03, 2018 FINAL DIAGNOSIS cad/herman/weakness CONDITION ON DISCHARGE: Stable CODE STATUS: Code Status: Full CUSTODIAL: SNF STAY <30 DAYS: Yes POST DISCHARGE ORDERS: ACTIVITY ORDERS: Activity as tolerated WEIGHT BEARING STATUS: As tolerated BATHING ORDERS: Shower-keep dressing dry, No Tub Bath until see Dr. NAJERA AFTER DISCHARGE: Cardiac WOUND/INCISION CARE: May get incision wet CHECKS AFTER DISCHARGE: CHECKS AFTER DISCHARGE: Check blood press - daily, Weigh Yourself Daily TREATMENT/EQUIPMENT ORDERS: ADAPTIVE EQUIPMENT NEEDED: None Physical Therapy For: Evalulation/Treatment Occupational Therapy For: Evaluation/Treatment DISCHARGE MEDICATIONS: Home Meds Active Scripts Ticagrelor (BRILINTA) 90 Mg Tablet, 90 MG PO BID for pad/cad for 30 Days, #60 TAB Prov:TEJAL JOHNSON MD 11/03/18 Diclofenac Sodium (VOLTAREN) 100 Gm Gel..gram., 1 GM TP QID, #100 GM 2 Refills Prov:DORENE SANTOS CARTOGRAPHY/MAPPING TECHNICIAN 11/27/17 Ferrous Sulfate (FEOSOL) 325 Mg Tablet, 325 MG PO BIDWMEALS, #60 TAB 6 Refills Prov:LELIA REES CARTOGRAPHY/MAPPING TECHNICIAN 09/24/17 Aspirin (ASPIRIN) 81 Mg Tab.chew, 81 MG PO DAILYWBKFT, #180 TAB.CHEW 3 Refills SIG: one tab daily; DO NOT INCREASE DOSE DUE TO USE OF BRILINTA Prov:LELIA REES CARTOGRAPHY/MAPPING TECHNICIAN 09/24/17 Atorvastatin Calcium (ATORVASTATIN CALCIUM) 40 Mg Tablet, 40 MG PO QHS, #30 TAB 3 Refills Prov:LELIA REES CARTOGRAPHY/MAPPING TECHNICIAN 09/24/17 Ranolazine (RANEXA) 500 Mg Tab.er.12h, 1000 MG PO BID, #60 TAB.SR 3 Refills Prov:LELIA REES CARTOGRAPHY/MAPPING TECHNICIAN 09/24/17 Tamsulosin Hcl (FLOMAX) 0.4 Mg Cap.er.24h, 0.4 MG PO DAILY for 30 Days, #30 CAP.SR 4 Refills Prov:NNAMDI HERMAN MD 07/01/17 Nitroglycerin (NITROSTAT) 0.4 Mg Tab.subl, 0.4 MG SL PRN Q5MIN PRN for CHEST PAIN for 90 Days, #60 TAB 5 Refills Prov:NNAMDI HERMAN MD 01/20/17 Losartan Potassium (COZAAR ) 50 Mg Tablet, 50 MG PO DAILY for 30 Days, #30 TAB 9 Refills Prov:NNAMDI HERMAN MD 01/20/17 Reported Medications Isosorbide Mononitrate (ISOSORBIDE MONONITRATE ER) 30 Mg Tab.er.24h, 1 TAB PO BID, #30 TAB 5 Refills 09/23/17 Metoprolol Tartrate (METOPROLOL TARTRATE) 25 Mg Tablet, 1 TAB PO BID, #180 TAB 1 Refill 09/23/17 Omeprazole (OMEPRAZOLE) 40 Mg Capsule.dr, 40 MG PO DAILY, CAP 07/15/17 Metoclopramide Hcl (REGLAN) 10 Mg Tablet, 5 MG PO TIDAC, #120 TAB 0 Refills 07/15/17 Cholecalciferol (Vitamin D3) (VITAMIN D3) 1,000 Unit Tablet, 2000 UNIT PO DAILY, TAB 11/11/16 Discontinued Reported Medications Ticagrelor (BRILINTA) 90 Mg Tablet, 90 MG PO BID, TAB 07/15/17 TEJAL JOHNSON MD Nov 03, 2018 12:54
--- NOTE | 2018-11-03 12:56 | SNU/HH DC ---
DISCHARGE WITH HOME HEALTH DISCHARGE INFORMATION: Discharge Date: Nov 03, 2018 Final Diagnosis: cad/pad/weakness/herman Condition on Discharge: Stable CODE STATUS: Code Status: Full HOME HEALTH: Face to Face: I certify this patient is under my care and that I, or a nurse practitioner or physician's public aid eligibility assistant working with me, had a face to face encounter that meets the physician face to face encounter requirements with this patient on []. Medical Complications: CABG RN For Eval/Treatment: Yes Physical Therapy For: Evalulation/Treatment Occupational Therapy For: Evaluation/Treatment Speech Language Pathology For: Evaluation/Treatment Home Health Aide For: Self-care SKIDWAY WORKER For: Community Resources Pt Meets Homebound Status: Extreme weakness w/ amb. POST DISCHARGE ORDERS: Activity Instructions for Disc: Activity as tolerated Weight Bearing Status after Di: As tolerated Bathing Instructions: Shower-keep dressing dry, No Tub Bath until see DIET AFTER DISCHARGE: Cardiac Wound/Incision Care: May get incision wet CHECKS AFTER DISCHARGE: Checks after discharge: Check blood press - daily, Weigh Yourself Daily TREATMENT/EQUIPMENT ORDERS: Adaptive Equipment Issued: None CERTIFICATION STATEMENT: Certification Statement: Certification Statement: Based on the above finding, I certify that this patient is confined to the home and needs intermittent mcfp care, physical therapy and/or speech therapy, or continues to need occupational therapy.~ This patient is under my care, and I have initiated the establishment of the plan of care.~ This patient will be followed by myself or a community physician who will periodically review the plan of care. Home Meds Active Scripts Ticagrelor (BRILINTA) 90 Mg Tablet, 90 MG PO BID for pad/cad for 30 Days, #60 TAB Prov:TEJAL JOHNSON MD 11/03/18 Diclofenac Sodium (VOLTAREN) 100 Gm Gel..gram., 1 GM TP QID, #100 GM 2 Refills Prov:DORENE SANTOS APRN 11/27/17 Ferrous Sulfate (FEOSOL) 325 Mg Tablet, 325 MG PO BIDWMEALS, #60 TAB 6 Refills Prov:LELIA REES APRN 09/24/17 Aspirin (ASPIRIN) 81 Mg Tab.chew, 81 MG PO DAILYWBKFT, #180 TAB.CHEW 3 Refills SIG: one tab daily; DO NOT INCREASE DOSE DUE TO USE OF BRILINTA Prov:LELIA REES RETREADER 09/24/17 Atorvastatin Calcium (ATORVASTATIN CALCIUM) 40 Mg Tablet, 40 MG PO QHS, #30 TAB 3 Refills Prov:DAYANARAMADELEINELELIA M RETREADER 09/24/17 Ranolazine (RANEXA) 500 Mg Tab.er.12h, 1000 MG PO BID, #60 TAB.SR 3 Refills Prov:LELIA REES RETREADER 09/24/17 Tamsulosin Hcl (FLOMAX) 0.4 Mg Cap.er.24h, 0.4 MG PO DAILY for 30 Days, #30 CAP.SR 4 Refills Prov:NNAMDI HERMAN MD 07/01/17 Nitroglycerin (NITROSTAT) 0.4 Mg Tab.subl, 0.4 MG SL PRN Q5MIN PRN for CHEST PAIN for 90 Days, #60 TAB 5 Refills Prov:NNAMDI HERMAN MD 01/20/17 Losartan Potassium (COZAAR ) 50 Mg Tablet, 50 MG PO DAILY for 30 Days, #30 TAB 9 Refills Prov:NNAMDI HERMAN MD 01/20/17 Reported Medications Isosorbide Mononitrate (ISOSORBIDE MONONITRATE ER) 30 Mg Tab.er.24h, 1 TAB PO BID, #30 TAB 5 Refills 09/23/17 Metoprolol Tartrate (METOPROLOL TARTRATE) 25 Mg Tablet, 1 TAB PO BID, #180 TAB 1 Refill 09/23/17 Omeprazole (OMEPRAZOLE) 40 Mg Capsule.dr, 40 MG PO DAILY, CAP 07/15/17 Metoclopramide Hcl (REGLAN) 10 Mg Tablet, 5 MG PO TIDAC, #120 TAB 0 Refills 07/15/17 Cholecalciferol (Vitamin D3) (VITAMIN D3) 1,000 Unit Tablet, 2000 UNIT PO DAILY, TAB 11/11/16 Discontinued Reported Medications Ticagrelor (BRILINTA) 90 Mg Tablet, 90 MG PO BID, TAB 07/15/17 TEJAL JOHNSON MD Nov 03, 2018 12:56
[2018-11-03 15:00] VITALS: BP 150/87
--- NOTE | 2018-11-03 15:47 | NUR ---
Discharge Note: HENRY GAVIN [address] [place] [address] Discharge instructions and discharge home medications reviewed with Patient and a copy given. All questions have been answered and understanding verbalized. The following instructions and handouts were given: Discontinued lines and drains: Peripheral IV intact. Patient discharged to Home w/services with Family Member via Wheelchair
--- NOTE | 2018-11-03 15:59 | CARD ---
MR#: [id number] Date of Study: 11/03/2018 Ordering Physician: FUENTES OVALLES, Referring Physician: FUENTES OVALLES, Tech: APPROVED REPORT EXAM: Two-dimensional and M-mode echocardiogram with Doppler and color Doppler. INDICATION Dyspnea Surgery/Intervention CABG: Date: 2016 RISK FACTORS Hypertension 2D DIMENSIONS RVDd2.8 (2.9-3.5cm)Left Atrium(2D)3.3 (1.6-4.0cm) IVSd1.3 (0.7-1.1cm)Aortic Root(2D)3.5 (2.0-3.7cm) LVDd4.9 (3.9-5.9cm)LVOT Diameter2.1 (1.8-2.4cm) PWd0.8 (0.7-1.1cm)LVDs3.1 (2.5-4.0cm) FS (%) 35.3 %SV71.5 ml LVEF(%)64.5 (>50%) Aortic Valve AoV Peak Fredy.108.2cm/sAoV VTI20.7cm AO Peak GR.4.7mmHgLVOT Peak Fredy.73.7cm/s LVOT VTI 17.00cmAO Mean GR.2mmHg LAQUITA (VMAX)1.37ek9XLT (VTI)2.84cm2 Mitral Valve MV E Jcvppzgn19.9cm/sMV DECEL [id number] MV A Oskticby02.6cm/sMV AZS71su E/A Ratio0.8MVA (PHT)2.83cm2 TDI E/Lateral E'6.4E/Medial E'10.9 Pulmonary Valve PV Peak Zbrqvcil74.3cm/sPV Peak Grad.2mmHg Tricuspid Valve TR P. Omcuckqc191hf/sRAP [id number] TR Peak Gr.24mmHg Pulmonary Vein S1 Edjevnqy90.3cm/sD2 Rmcvtkci31.1cm/s PVa [id number] LEFT VENTRICLE The left ventricle is normal size. There is mild to moderate concentric left ventricular hypertrophy. The left ventricular systolic function is normal. The Ejection Fraction is 55%. There is normal LV s egmental wall motion. Transmitral Doppler flow pattern is Grade I-abnormal relaxation pattern. RIGHT VENTRICLE The right ventricle is normal size. There is normal right ventricular wall thickness. The right ventr icular systolic function is normal. ATRIA The left atrium size is normal. The right atrium size is normal. The interatrial septum is intact wit h no evidence for an atrial septal defect or patent foramen ovale as noted on 2-D or Doppler imaging. AORTIC VALVE The aortic valve is normal in structure and function. Doppler and Color Flow revealed trace aortic re gurgitation. There is no significant aortic valvular stenosis. MITRAL VALVE The mitral valve is normal in structure and function. There is no evidence of mitral valve prolapse. There is no mitral valve stenosis. Doppler and Color-flow revealed trace mitral regurgitation. TRICUSPID VALVE The tricuspid valve is normal in structure and function. Doppler and Color Flow revealed trace tricus pid regurgitation with an estimated PAP of 39 mmHg. There is mild pulmonary hypertension. There is no tricuspid valve stenosis. PULMONIC VALVE The pulmonic valve is not well visualized. Doppler and Color Flow revealed trace pulmonic valvular re gurgitation. GREAT VESSELS The aortic root is normal in size. The IVC is dilated and collapses <50% with inspiration. PERICARDIAL EFFUSION There is no evidence of significant pericardial effusion. Critical Notification Critical Value: No <Conclusion> The left ventricular systolic function is normal. The Ejection Fraction is 55%. There is normal LV segmental wall motion. Transmitral Doppler flow pattern is Grade I-abnormal relaxation pattern. Trace mitral regurgitation. Trace tricuspid regurgitation with an estimated PAP of 39 mmHg. There is mild pulmonary hypertension. There is no evidence of significant pericardial effusion. Signed by : Kristopher Parrish, Electronically Approved : 11/03/2018 15:59:17
== END 2018-11-03 15:30 | disposition home health service (06) ==
LOC: ER 11:06 → INTOOBSV 14:35 → ED HOLD 14:35 → 6 SOUTH 18:34
PROVIDERS: ADMIT Family Medicine; ATTEND Family Medicine
DX: I50.33 Acute on chronic diastolic (congestive) heart failure (principal); I25.10 Atherosclerotic heart disease of native coronary artery without angina pectoris; Z95.1 Presence of aortocoronary bypass graft; E78.5 Hyperlipidemia, unspecified; K21.9 Gastro-esophageal reflux disease without esophagitis; M54.9 Dorsalgia, unspecified; G89.29 Other chronic pain; I73.9 Peripheral vascular disease, unspecified; R60.9 Edema, unspecified; I13.0 Hypertensive heart and chronic kidney disease with heart failure and stage 1 through stage 4 chronic kidney disease, or unspecified chronic kidney disease; N18.3 Chronic kidney disease, stage 3 (moderate); D63.8 Anemia in other chronic diseases classified elsewhere; Z86.010 Personal history of colon polyps; E78.00 Pure hypercholesterolemia, unspecified; K80.20 Calculus of gallbladder without cholecystitis without obstruction
CPT/HCPCS: 36415; 71045; 80048; 80053; 81001; 83735; 83880; 84439; 84443; 84484; 85025; 85379; 85610; 93005; 93306; 97162; 97166; 99284; G0378; J8597; G0379; 99285-25

== ENCOUNTER 2019-02-10 13:11 | Emergency (ER) | payer MEDICARE, OTHER ==
[~2019-02-10] VITALS: Ht 180.3 cm; Wt 88.9 kg
[~2019-02-10 13:11] MED LIST changes: -NITR0.4T SL; +NITR0.4T24 SL; +OMEP40CA45 PO; -OMEP40CA5 PO
[2019-02-10 13:57] VITALS: BP 167/76
[2019-02-10 14:31] LABS: BASO % 1 % (0-3); EOS # 0.1 x10^3/uL (0.0-0.7); EOS % 4 % (0-3); HEMATOCRIT 33.4 % (39.0-53.0); HEMOGLOBIN 11.1 g/dL (13.0-17.5); LYMPH # 0.6 x10^3/uL (1.0-4.8); LYMPH % 15 % (24-48); MEAN CORPUSCULAR HEMOGLOBIN 30 pg (25-35); MEAN CORPUSCULAR HGB CONC 33 g/dL (31-37); MEAN CORPUSCULAR VOLUME 91 fL (79-100); MONO # 0.5 x10^3/uL (0.0-1.1); MONO % 12 % (0-9); NEUT # 2.8 x10^3/uL (1.8-7.7); NEUT % 69 % (31-73); PLATELET COUNT 259 x10^3/uL (140-400); RED BLOOD COUNT 3.66 x10^6/uL (4.30-5.70); RED CELL DISTRIBUTION WIDTH 13.5 % (11.5-14.5)
--- NOTE | 2019-02-10 14:32 | PHYS DOC ---
Past Medical History Past Medical History: CAD, High Cholesterol, Hypertension Additional Past Medical Histor: possible VT, PAD Past Surgical History: Coronary Bypass Surgery Additional Past Surgical Histo: right knee surgery, cardiac cath with stent Alcohol Use: None Drug Use: None Adult General Chief Complaint Chief Complaint: WEAKNESS/GENERALIZED HPI HPI Patient is a 74 year old male with history of hypertension, dyslipidemia, coronary artery disease, peripheral vascular disease, anemia and blood transfusion who presents with complaining of weakness. Patient complaining of generalized weakness for the last 1 week that getting worse today. Patient states he does not have energy to move around and most of the time stays in the bed. Patient denies new or shortness of breath, fever and chills, chest pain, focal neuro deficit, vomiting and diarrhea, urinary symptoms. Patient states his dizziness getting force feed standing up and activity. Patient states he had the same problem previously with anemia and needs for blood transfusion about 2 years ago. Review of Systems Review of Systems Constitutional: Denies fever or chills [] Eyes: Denies change in visual acuity, redness, or eye pain [] HENT: Denies nasal congestion or sore throat [] Respiratory: Denies cough or shortness of breath [] Cardiovascular: No additional information not addressed in HPI [] GI: Denies abdominal pain, nausea, vomiting, bloody stools or diarrhea [] : Denies dysuria or hematuria [] Musculoskeletal: Denies back pain or joint pain [] Integument: Denies rash or skin lesions [] Neurologic: Denies headache, focal weakness or sensory changes [] Endocrine: Denies polyuria or polydipsia [] All other systems were reviewed and found to be within normal limits, except as documented in this note. Allergies Allergies Allergies Coded Allergies Type Severity Reaction Last Updated Verified No Known Drug Allergies 07/15/17 No Physical Exam Physical Exam Constitutional: Well developed, well nourished, mild distress, non-toxic appearance. [] HENT: Normocephalic, atraumatic, bilateral external ears normal, oropharynx moist, no oral exudates, nose normal. [] Eyes: PERRLA, EOMI, conjunctiva normal, no discharge. [] Neck: Normal range of motion, no tenderness, supple, no stridor. [] Cardiovascular:Heart rate regular rhythm, no murmur [] Lungs & Thorax: Bilateral breath sounds clear to auscultation [] Abdomen: Bowel sounds normal, soft, no tenderness, no masses, no pulsatile masses. [] Skin: Warm, dry, no erythema, no rash. [] Back: No tenderness, no CVA tenderness. [] Extremities: No tenderness, no cyanosis, no clubbing, ROM intact, no edema. [] Neurologic: Alert and oriented X 3, normal motor function, normal sensory function, no focal deficits noted. [] Psychologic: Affect normal, judgement normal, mood normal. [] Current Patient Data Vital Signs Vital Signs Date Time Temp Pulse Resp B/P (MAP) Pulse Ox O2 Delivery O2 Flow Rate FiO2 02/10/19 13:57 97.6 76 20 167/76 (106) 98 Room Air 97.6 Lab Values Laboratory Tests Test 02/10/19 14:15 02/10/19 15:09 02/10/19 15:15 White Blood Count 4.0 x10^3/uL (4.0-11.0) Red Blood Count 3.66 x10^6/uL (4.30-5.70) L Hemoglobin 11.1 g/dL (13.0-17.5) L Hematocrit 33.4 % (39.0-53.0) L Mean Corpuscular Volume 91 fL (79-100) Mean Corpuscular Hemoglobin 30 pg (25-35) Mean Corpuscular Hemoglobin Concent 33 g/dL (31-37) Red Cell Distribution Width 13.5 % (11.5-14.5) Platelet Count 259 x10^3/uL (140-400) Neutrophils (%) (Auto) 69 % (31-73) Lymphocytes (%) (Auto) 15 % (24-48) L Monocytes (%) (Auto) 12 % (0-9) H Eosinophils (%) (Auto) 4 % (0-3) H Basophils (%) (Auto) 1 % (0-3) Neutrophils # (Auto) 2.8 x10^3/uL (1.8-7.7) Lymphocytes # (Auto) 0.6 x10^3/uL (1.0-4.8) L Monocytes # (Auto) 0.5 x10^3/uL (0.0-1.1) Eosinophils # (Auto) 0.1 x10^3/uL (0.0-0.7) Basophils # (Auto) 0.0 x10^3/uL (0.0-0.2) Prothrombin Time 14.1 SEC (11.7-14.0) H Prothrombin Time INR 1.1 (0.8-1.1) Lactic Acid Level 1.5 mmol/L (0.4-2.0) Urine Collection Type Void Urine Color Yellow Urine Clarity Clear Urine pH 5.5 Urine Specific [place] 1.015 Urine Protein Negative mg/dL (NEG-TRACE) Urine Glucose (UA) Negative mg/dL (NEG) Urine Ketones (Stick) Negative mg/dL (NEG) Urine Blood Negative (NEG) Urine Nitrite Negative (NEG) Urine Bilirubin Negative (NEG) Urine Urobilinogen Dipstick 1.0 mg/dL (0.2 mg/dL) Urine Leukocyte Esterase Negative (NEG) Urine RBC Occ /HPF (0-2) Urine WBC Occ /HPF (0-4) Urine Bacteria 0 /HPF (0-FEW) Urine Mucus Mod /LPF Sodium Level 140 mmol/L (136-145) Potassium Level 4.0 mmol/L (3.5-5.1) Chloride Level 103 mmol/L (98-107) Carbon Dioxide Level 26 mmol/L (21-32) Anion Gap 11 (6-14) Blood Urea Nitrogen 13 mg/dL (8-26) Creatinine 1.5 mg/dL (0.7-1.3) H Estimated GFR (Cockcroft-Gault) 55.1 BUN/Creatinine Ratio 9 (6-20) Glucose Level 100 mg/dL (70-99) H Calcium Level 8.3 mg/dL (8.5-10.1) L Magnesium Level 1.8 mg/dL (1.8-2.4) Total Bilirubin 0.6 mg/dL (0.2-1.0) Aspartate Amino Transferase (AST) 16 U/L (15-37) Alanine Aminotransferase (ALT) 20 U/L (16-63) Alkaline Phosphatase 70 U/L (46-116) Creatine Kinase 125 U/L (39-308) Troponin I Quantitative < 0.017 ng/mL (0.000-0.055) GM-Rzt-Z-Type Natriuretic Peptide 782 pg/mL (0-449) H Total Protein 7.2 g/dL (6.4-8.2) Albumin 3.8 g/dL (3.4-5.0) Albumin/Globulin Ratio 1.1 (1.0-1.7) Laboratory Tests 02/10/19 14:15 Laboratory Tests 02/10/19 15:15 EKG EKG EKG interpreted by me. EKG at 14 elevated showing normal sinus rhythm at rate of 74, left fourth axis, LVH with repolarization, LVH, poor R-wave progress in anteroseptal leads, unchanged from EKG dated 11/03/2018 Radiology/Procedures Radiology/Procedures [][facility] [address] [place] [address] IMAGING REPORT Signed PATIENT: HENRY GAVIN ACCOUNT: [id number] : 1945 LOCATION: ER AGE: 74 SEX: M EXAM STATUS: REG ER ORD. PHYSICIAN: JULIETA BANKS MD REASON: weakness.Pt states some trouble breathing and pain. PROCEDURE: PORTABLE CHEST 1V PORTABLE CHEST 1V INDICATION: Dyspnea, weakness. COMPARISON STUDY: 11/02/2018. FINDINGS: Lungs: Normal lung volume. No pulmonary mass or consolidation. The tracheobronchial tree and hilar structures are normal. Pleura: No pleural effusion or pneumothorax. Heart and Mediastinum: Stable cardiomediastinal silhouette and great vessels. CABG. IMPRESSION: No focal airspace disease. Electronically signed by: Brenda Sterling MD (02/10/2019 3:54 PM) [facility] [place] DICTATED and SIGNED BY: BRENDA STERLING MD DATE: 02/10/19 1554 [facility] [address] [place] [address] IMAGING REPORT Signed PATIENT: HENRY GAVIN ACCOUNT: [id number] : 1945 LOCATION: ER AGE: 74 SEX: M EXAM STATUS: PRE ER ORD. PHYSICIAN: JULIETA BANKS MD REASON: generalized weakness PROCEDURE: CT HEAD WO CONTRAST EXAM: Head CT without contrast. HISTORY: Weakness. TECHNIQUE: Computed tomographic images of the head were obtained without contrast.. *One or more of the following individualized dose reduction techniques were utilized for this examination: 1. Automated exposure control. 2. Adjustment of the mA and/or kV according to patient size. 3. Use of iterative reconstruction technique. COMPARISON: 12/14/2017. FINDINGS: There is no hemorrhage. There is no mass effect or midline shift. There is ventricular enlargement due to cerebral atrophy. There are areas of decreased attenuation within the cerebral white matter, nonspecific and likely related to chronic small vessel disease. There is a chronic lacunar infarct within the left basal ganglia. There is a suspected chronic right lamina papyracea fracture. There is paranasal sinus mucosal thickening. The mastoid air cells are clear. There is no suspicious calvarial lesion. IMPRESSION: 1. No acute intracranial finding. Note is made that MRI is more sensitive for acute infarction. 2. Decreased attenuation within the cerebral white matter, likely due to chronic small vessel disease. 3. Cerebral atrophy with compensatory enlargement of the ventricles. 4. Chronic lacunar infarct within the left basal ganglia. Electronically signed by: Mona Collins MD (02/10/2019 2:49 PM) [place] [id number] DICTATED and SIGNED BY: MONA COLLINS MD DATE: 02/10/19 1449 Course & Med Decision Making Course & Med Decision Making Pertinent Labs and Imaging studies reviewed. (See chart for details) Evaluation of patient in ER showed 74 years old male patient presented to ER with complaint of weakness for 1 week and previous history of anemia and blood transfusion. patient had unremarkable physical exam and labs except for chronic elevation of BNP. Patient ambulated without problem and wanted to follow up with his PCP as outpatient. Dragon Disclaimer Dragon Disclaimer This electronic medical record was generated, in whole or in part, using a voice recognition dictation system. Departure Departure Impression: Primary Impression: Generalized weakness Additional Impressions: Chronic anemia Elevated brain natriuretic peptide (BNP) level Disposition: 01 HOME, SELF-CARE (16 or 20) Condition: STABLE Patient Instructions: Anemia, FAQs, Heart Failure, Weakness Additional Instructions: Continue current home medication Follow-up with your primary care physician in 3-5 days Return to ER if not getting better Problem Qualifiers JULIETA BANKS MD Feb 10, 2019 14:32
[2019-02-10 14:42] LABS: PROTHROMBIN TIME PATIENT 14.1 SEC (11.7-14.0)
--- NOTE | 2019-02-10 14:52 | RAD ---
EXAM: Head CT without contrast. HISTORY: Weakness. TECHNIQUE: Computed tomographic images of the head were obtained without contrast.. *One or more of the following individualized dose reduction techniques were utilized for this examination: 1. Automated exposure control. 2. Adjustment of the mA and/or kV according to patient size. 3. Use of iterative reconstruction technique. COMPARISON: 12/14/2017. FINDINGS: There is no hemorrhage. There is no mass effect or midline shift. There is ventricular enlargement due to cerebral atrophy. There are areas of decreased attenuation within the cerebral white matter, nonspecific and likely related to chronic small vessel disease. There is a chronic lacunar infarct within the left basal ganglia. There is a suspected chronic right lamina papyracea fracture. There is paranasal sinus mucosal thickening. The mastoid air cells are clear. There is no suspicious calvarial lesion. IMPRESSION: 1. No acute intracranial finding. Note is made that MRI is more sensitive for acute infarction. 2. Decreased attenuation within the cerebral white matter, likely due to chronic small vessel disease. 3. Cerebral atrophy with compensatory enlargement of the ventricles. 4. Chronic lacunar infarct within the left basal ganglia. Electronically signed by: Mona Brower MD (02/10/2019 2:49 PM) [place] [id number]
--- NOTE | 2019-02-10 14:52 | EKG ---
[facility] [address] [place] [address] Test Date: 2019-02-10 Test Time: 14:11:34 Pat Name: HENRY GAVIN Department: Room: Gender: M [employer]: : 1945 Requested By: JULIETA BANKS Order Number: [id number] Reading MD: Kristopher Parrish Measurements Intervals Vanderbilt Rate: 74 P: 10 NE: 190 QRS: -28 QRSD: 86 T: 147 QT: 374 QTc: 420 Interpretive Statements SINUS RHYTHM LEFTWARD AXIS LVH WITH REPOLARIZATION ABNORMALITY QRS(T) CONTOUR ABNORMALITY CONSIDER INFERIOR INFARCT ABNORMAL ECG Electronically Signed On 02-13-2019 14:35:22 AD COMPOSITOR by Kristopher Parrish
[2019-02-10 15:17] LABS: BILIRUBIN,URINE NEGATIVE (NEG); COLOR,URINE YELLOW; NITRITE,URINE NEGATIVE (NEG); PH,URINE 5.5; PROTEIN,URINE NEGATIVE (NEG-TRACE)
[2019-02-10 15:26] LABS: CLARITY,URINE CLEAR
[2019-02-10 15:27] LABS: BACTERIA,URINE 0 /HPF (0-FEW); RBC,URINE OCC /HPF (0-2); WBC,URINE OCC /HPF (0-4)
[2019-02-10 15:34] LABS: CALCIUM 8.3 mg/dL (8.5-10.1); CREATININE 1.5 mg/dL (0.7-1.3); GFR 55.1
[2019-02-10 15:41] LABS: ALBUMIN 3.8 g/dL (3.4-5.0); ALBUMIN/GLOBULIN RATIO 1.1 (1.0-1.7); MAGNESIUM 1.8 mg/dL (1.8-2.4); TOTAL BILIRUBIN 0.6 mg/dL (0.2-1.0); TOTAL PROTEIN 7.2 g/dL (6.4-8.2)
--- NOTE | 2019-02-10 15:58 | RAD ---
PORTABLE CHEST 1V INDICATION: Dyspnea, weakness. COMPARISON STUDY: 11/02/2018. FINDINGS: Lungs: Normal lung volume. No pulmonary mass or consolidation. The tracheobronchial tree and hilar structures are normal. Pleura: No pleural effusion or pneumothorax. Heart and Mediastinum: Stable cardiomediastinal silhouette and great vessels. CABG. IMPRESSION: No focal airspace disease. Electronically signed by: Stephen Sterling MD (02/10/2019 3:54 PM) [facility]
== END 2019-02-10 16:26 | disposition home or self-care (01) ==
LOC: ER 13:11
DX: R53.1 Weakness (principal); D64.9 Anemia, unspecified; R79.89 Other specified abnormal findings of blood chemistry; R42 Dizziness and giddiness; I10 Essential (primary) hypertension; E78.5 Hyperlipidemia, unspecified; E78.00 Pure hypercholesterolemia, unspecified; I25.10 Atherosclerotic heart disease of native coronary artery without angina pectoris; Z95.1 Presence of aortocoronary bypass graft; Z95.5 Presence of coronary angioplasty implant and graft
CPT/HCPCS: 36415; 70450; 71045; 80053; 81001; 82550; 83605; 83735; 83880; 84484; 85025; 85610; 93005; 99285-25

== ENCOUNTER → 2019-04-25 | Outpatient (CLI) | payer MEDICARE, OTHER ==
[2019-04-25 12:08] LABS: BASO % 0 % (0-3); EOS # 0.1 x10^3/uL (0.0-0.7); EOS % 2 % (0-3); HEMATOCRIT 36.9 % (39.0-53.0); HEMOGLOBIN 12.3 g/dL (13.0-17.5); LYMPH # 0.5 x10^3/uL (1.0-4.8); LYMPH % 11 % (24-48); MEAN CORPUSCULAR HEMOGLOBIN 31 pg (25-35); MEAN CORPUSCULAR HGB CONC 33 g/dL (31-37); MEAN CORPUSCULAR VOLUME 92 fL (79-100); MONO # 0.5 x10^3/uL (0.0-1.1); MONO % 11 % (0-9); NEUT # 3.6 x10^3/uL (1.8-7.7); NEUT % 76 % (31-73); PLATELET COUNT 227 x10^3/uL (140-400); WHITE BLOOD COUNT 4.8 x10^3/uL (4.0-11.0)
[2019-04-25 12:23] LABS: CALCIUM 8.8 mg/dL (8.5-10.1); CREATININE 1.6 mg/dL (0.7-1.3); GFR 51.1; MAGNESIUM 1.8 mg/dL (1.8-2.4); POTASSIUM 3.8 mmol/L (3.5-5.1)
== END | disposition home or self-care (01) ==
LOC: LAB 11:37
PROVIDERS: ATTEND Internal Medicine Cardiovascular Disease
DX: K92.2 Gastrointestinal hemorrhage, unspecified (principal); I25.10 Atherosclerotic heart disease of native coronary artery without angina pectoris; I10 Essential (primary) hypertension; I25.5 Ischemic cardiomyopathy
CPT/HCPCS: 36415; 80048; 83735; 85025

== ENCOUNTER 2019-08-07 11:47 | Emergency (ER) | payer MEDICARE, OTHER ==
[~2019-08-07] VITALS: Ht 180.3 cm; Wt 88.6 kg
[~2019-08-07 11:47] MED LIST changes: -DICL100G18 TP; +DICL100G54 TP; +ISOS60TA2 PO; +PRAS10TA9 PO; +[UNRECOGNIZED DRUG - OTHER] PO
[2019-08-07] MEDS ORDERED: CYCLOBENZAPRINE 10 MG TABLET. PO ONE (12:30)
[2019-08-07 12:57] VITALS: BP 155/71
[2019-08-07] MEDS ORDERED: CYCL10TA2 PO (13:18)
[2019-08-07] MEDS ORDERED: DICL100G54 TP (13:18)
--- NOTE | 2019-08-07 13:19 | PHYS DOC ---
Past Medical History Past Medical History: CAD, High Cholesterol, Hypertension, Other Additional Past Medical Histor: possible SC, PAD Past Surgical History: Coronary Bypass Surgery Additional Past Surgical Histo: right knee surgery, cardiac cath with stent Smoking Status: Former Smoker Alcohol Use: None Drug Use: None General Adult EDM: Chief Complaint: LOWER BACK PAIN OR INJURY HPI: HPI: Patient is a 74 year old male with history of CAD, hypertension, who presents to the ED today complaining of 10 out of 10 right low back pain radiating to the right lower extremity that is chronic but got worse a couple days ago when he is twisted his back bending. Patient denies any loss of bowel/bladder function. Denies any numbness or tingling to bilateral lower extremities. States the pain is worse on range of motion. Patient reports is had similar pain before and was given a muscle relaxer which cleared the pain up. Review of Systems: Review of Systems: Constitutional: Denies fever or chills. [] Eyes: Denies change in visual acuity. [] : Denies dysuria. [] Musculoskeletal: Reports right low back pain radiating to the right lower extremity Integument: Denies rash. [] Neurologic: Denies headache, focal weakness or sensory changes. [] Psychiatric: Denies depression or anxiety. [] Heart Score: Risk Factors: Risk Factors: DM, Current or recent (<one month) smoker, HTN, HLP, family history of CAD, obesity. Risk Scores: Score 0 - 3: 2.5% MACE over next 6 weeks - Discharge Home Score 4 - 6: 20.3% MACE over next 6 weeks - Admit for Clinical Observation Score 7 - 10: 72.7% MACE over next 6 weeks - Early Invasive Strategies Current Medications: Current Medications Medications (Trade) Dose Ordered Sig/[facility] Start Time Stop Time Status Last Admin Dose Admin Cyclobenzaprine HCl (Flexeril) 10 mg 1X ONCE 08/07/19 12:30 08/07/19 12:32 DC 08/07/19 13:04 10 MG Allergies: Allergies: Allergies Coded Allergies Type Severity Reaction Last Updated Verified No Known Drug Allergies 07/15/17 No Physical Exam: PE: Constitutional: Well developed, well nourished, no acute distress, non-toxic appearance. [] Eyes: PERRLA, EOMI, right conjunctive appears injected and has yellow drainage, patient states this is been going on for weeks and he follows up with an op hthalmologist. Neck: Normal range of motion, no tenderness, supple, no stridor. [] Cardiovascular:Heart rate regular rhythm, no murmur [] Lungs & Thorax: Bilateral breath sounds clear to auscultation [] Abdomen: Bowel sounds normal, soft, no tenderness, no masses, no pulsatile masses. [] Skin: Warm, dry, no erythema, no rash. [] Back: No tenderness, no CVA tenderness. [] Extremities: No tenderness, no cyanosis, no clubbing, ROM intact, no edema. [] Neurologic: Alert and oriented X 3, normal motor function, normal sensory function, no focal deficits noted. [] Psychologic: Affect normal, judgement normal, mood normal. [] Current Patient Data: Vital Signs: Vital Signs Date Time Temp Pulse Resp B/P (MAP) Pulse Ox O2 Delivery O2 Flow Rate FiO2 08/07/19 12:27 68 17 158/69 (98) 97 Room Air 08/07/19 11:55 97.7 97.7 EKG: EKG: [] Radiology/Procedures: Radiology/Procedures: [] Course & Med Decision Making: Course & Med Decision Making Pertinent Labs and Imaging studies reviewed. (See chart for details) This is a 74-year-old male patient presenting to the ED today with exacerbation of chronic low back pain with sciatica. Has no cauda equina syndrome symptoms. Has used a muscle relaxer previously with good relief. Will be discharged with cyclobenzaprine and diclofenac cream. Follow-up with PCP in 1 to 2 weeks. Austen Disclaimer: Austen Disclaimer: This electronic medical record was generated, in whole or in part, using a voice recognition dictation system. Departure Departure Impression: Primary Impression: Low back pain Qualified Codes: M54.41 - Lumbago with sciatica, right side; G89.29 - Other chronic pain Disposition: 01 HOME, SELF-CARE Condition: STABLE Referrals: TEJAL JOHNSON MD (PCP) Follow-up in 1 to 2 weeks Patient Instructions: Back Pain, Adult Additional Instructions: You were seen for low back pain, use the prescribed medications as ordered. Follow-up with your primary care doctor in 1 to 2 weeks. Scripts Diclofenac Sodium (VOLTAREN) 100 Gm Gel..gram. 1 GM TP QID for pain for 30 Days, #1 EACH 0 Refills apply to affected area(s) Prov: DORENE SANTOS APRN 08/07/19 Cyclobenzaprine Hcl (CYCLOBENZAPRINE HCL) 10 Mg Tablet 1 TAB PO TID, #30 TAB Prov: DORENE SANTOS APRN 08/07/19 DORENE SANTOS APRN August 07, 2019 13:19
== END 2019-08-07 13:28 | disposition home or self-care (01) ==
LOC: ER 11:47
DX: G89.29 Other chronic pain (principal); M54.41 Lumbago with sciatica, right side; I10 Essential (primary) hypertension; I25.2 Old myocardial infarction; I25.10 Atherosclerotic heart disease of native coronary artery without angina pectoris; E78.00 Pure hypercholesterolemia, unspecified; Z87.891 Personal history of nicotine dependence; Z95.1 Presence of aortocoronary bypass graft; Z95.5 Presence of coronary angioplasty implant and graft
CPT/HCPCS: 99283

== ENCOUNTER → 2020-07-05 | Outpatient (CLI) | payer MEDICARE, OTHER ==
[~2020-07-05] MED LIST changes: -ASPI-612 PO; +ASPI-886 PO; +CYCL10TA2 PO; -ISOS30TA4 PO; +ISOS30TA68 PO; -ISOS60TA2 PO; +ISOS60TA55 PO
--- NOTE | 2020-07-05 13:19 | RAD ---
MR#: [id number] Date of Study: 07/05/2020 Ordering Physician: GAYB TROTTER, Referring Physician: GABY TROTTER, Tech: Rupa Hampton, DAYANA, RVT, RTR APPROVED REPORT Patient Location: OUT-PATIENT Indications Claudication:Bilaterally PAD Risk Factors Hypertension Hyperlipidemia VELOCITY AND DOPPLER WAVEFORM ANALYSIS RIGHT cm/secWaveformSeverity LEFT cm/secWaveform Severity pCFA 84.1MonophasicpCFA dCFA dCFA 97.8Monophasic Prof Fem Art. 233.9MonophasicProf Fem Art. 72.9Monophasic Fem Art Prox. 226.0MonophasicFem Art Prox. 43.1Monophasic Fem Art Mid. OccludedFem Art Mid. 91.0Monophasic Fem Art Dist. OccludedFem Art Dist. 113.5Monophasic Pop Art(AK) 101.8MonophasicPop Art(AK) 26.0Monophasic SALES REPRESENTATIVE DOOR TO DOOR Prox. 24.6MonophasicPTA Prox. 22.0Monophasic SALES REPRESENTATIVE DOOR TO DOOR Dist. 20.8MonophasicPTA Dist. Occluded Per Art Prox. 30.0MonophasicPer Art Prox. 30.7Monophasic SHREE Prox. 15.2MonophasicATA Prox. 22.6Monophasic DPA 8MonophasicDPA 22Monophasic Findings Grayscale images of the bilateral lower extremity arterial vessels demonstrates moderate to severe di ffuse atherosclerotic plaque. On the right side the mid SFA is occluded with reconstitution at the level of the popliteal artery an d diminished velocities below the knee consistent with more proximal stenosis. On the left side ther e are monophasic waveforms over the entire left lower extremity suggestive of more proximal aortic in flow disease. There is likely high-grade disease at the level of the distal SFA and popliteal juncti on. There is three-vessel runoff bilaterally but albeit with severely diminished flows. Critical Notification Critical Value: No <Conclusion> 1. Severe bilateral lower extremity arterial disease as described above Signed by : Hector Bryant, Electronically Approved : 07/05/2020 13:19:07
--- NOTE | 2020-07-05 13:21 | RAD ---
MR#: [id number] Date of Study: 07/05/2020 Ordering Physician: GABY TROTTER, Referring Physician: GABY TROTTER, Tech: Rupa Hampton RDMS, RVT, RTR APPROVED REPORT Bilateral Lower Extremity Venous Study for DVT Patient Location: OUT-PATIENT Indications Lower Extremity Edema: Bilateral Findings The bilateral lower extremity deep veins were evaluated for thrombus with color Doppler, spectral and grayscale images. On the right the grayscale images of the common femoral, superficial femoral and popliteal veins do n ot demonstrate any evidence of thrombus and these veins appear to be compressible. The below-knee vei ns were not well visualized but grossly appear to be compressible. Spectral imaging and color Doppler do not reveal any evidence of obstruction to flow with normal respirophasic variation above the knee . Below the knee there is spontaneous flow noted. On the left, the grayscale images of the common femoral, superficial femoral and popliteal veins do n ot demonstrate any evidence of thrombus and these veins appear to be compressible. The below-knee vei ns again were not well visualized but grossly appear to be compressible. Spectral imaging and color D oppler do not reveal any evidence of obstruction to flow with normal respirophasic variation above th e knee. The below-knee veins demonstrate spontaneous flow. Critical Notification Critical Value: No <Conclusion> 1. Negative for DVT bilateral lower extremities. 2. Technically difficult study Signed by : Hector Bryant, Electronically Approved : 07/05/2020 13:20:23
--- NOTE | 2020-07-05 13:22 | RAD ---
MR#: [id number] Date of Study: 07/05/2020 Ordering Physician: GABY TROTTER, Referring Physician: GABY TROTTER, Tech: Rupa Hampton, DAYANA, RVT, RTR APPROVED REPORT Patient Location : OUT-PATIENT Indications Lower Extremity Edema : Bilateral Findings Grayscale images of the bilateral saphenofemoral junctions are grossly unremarkable. The right great saphenous vein measures 7.7 mm and has no evidence of reflux. The left great saphenous vein has bee n previously harvested. The bilateral lesser saphenous veins did not demonstrate any evidence of ref lux Critical Notification Critical Value: No <Conclusion> 1. No significant venous reflux identified in the bilateral lower extremities Signed by : Hector Bryant, Electronically Approved : 07/05/2020 13:21:36
== END ==
LOC: US 09:16
PROVIDERS: ATTEND Internal Medicine Cardiovascular Disease
DX: I70.203 Unspecified atherosclerosis of native arteries of extremities, bilateral legs (principal); I10 Essential (primary) hypertension; E78.5 Hyperlipidemia, unspecified
CPT/HCPCS: 93925; 93970

== ENCOUNTER 2020-08-12 07:17 | Outpatient (CLI) | payer MEDICARE, OTHER ==
[2020-08-12] VITALS (16 sets, daily range): BP systolic 145–170; BP diastolic 55–89
[~2020-08-12] VITALS: Ht 180.3 cm; Wt 86.3 kg
[~2020-08-12 07:17] MED LIST changes: -OMEP40CA45 PO; +OMEP40CA7 PO
[2020-08-12] MEDS ORDERED: IODIXANOL 320 MG/ML 100 ML VIAL. ONE (07:34)
[2020-08-12] MEDS ORDERED: LIDOCAINE 1% Multi-Dose 20 ML VIAL. ONE (07:34)
[2020-08-12] MEDS ORDERED: HEPARIN for ARTERIAL LINE 1,500 ML ONE (07:34)
[2020-08-12 07:52] LABS: HEMATOCRIT 39.4 % (39.0-53.0); HEMOGLOBIN 13.2 g/dL (13.0-17.5); RED BLOOD COUNT 4.3 x10^6/uL (4.30-5.70); RED CELL DISTRIBUTION WIDTH 12.9 % (11.5-14.5)
[2020-08-12 08:04] LABS: PROTHROMBIN TIME PATIENT 13.3 SEC (11.7-14.0)
--- NOTE | 2020-08-12 08:04 | PDOC ---
MODERATE SEDATION ASSESSMENT RISKS/ALTERNATIVES Risks/Alternatives Risks and alternatives of this type of sedation and procedure discussed with: RISK/ALTERNATIVES: Patient H & P ON CHART H & P H & P on chart and reviewed for co-morbid conditions and appropriate labs. H&P ON CHART: Yes STATUS PREG STATUS ASSESSED: N/A MEDS/ALLERGIES REVIEWED Meds/Allergies Reviewed Medications and Allergies including time and route of recently administered narcotics and sedatives. MEDS/ALLERGIES REVIEWED: Yes ASA RATING ASA RATING: II AIRWAY ASSESSMENT Airway Assessment Airway patency, oral function limitations, presence of caps, crowns, dentures, partials, and ability to extend neck assessed. AIRWAY ASSESSMENT: Yes MALLAMPATI SCORE MALLAMPATI SCORE: II PRE-SEDATION ASSESSMENT PRE-SEDATION ASSESSMENT: Yes MINO MORRIS MD August 12, 2020 08:04
--- NOTE | 2020-08-12 08:08 | PDOC1 ---
History and Physical Visit Information Date of Admission: 08/12/2020 History of Present Illness History of Present Illness Kory is a 75-year-old man who presents to the [facility] today for a planned aortogram with runoff. He has a longstanding history of vascular disease and previously underwent coronary artery bypass surgery. 2 of his 3 bypass grafts were unfortunately failed on his last cardiac catheterization. He has a LIND to the LAD which is patent. In the setting about 3 years ago he underwent an aortogram which revealed severe lower extremity arterial disease. He had iliac disease as well. He was subsequently seen by vascular surgery at that time and he had nonlifestyle limiting claudication therefore he was felt to be best treated with medical therapy and conservative management. In speaking with the patient and his daughter today it appears that he has had worsening lifestyle limiting symptoms at this time. He is unable to perform ADLs such as walking through the grocery store. He used to be active and enjoyed doing work in his garage and in the cars and is now unable to do that because of claudication. He has 2 different types of pain wound which appears to be neuropathy and another which appears to be claudication. The predominant issue several times a week for him is bilateral calf claudication. He denies any syncope or palpitations but does also have exertional dyspnea. He does not have any mercedes angina. Cardiac Risk Factors Comments 1. Coronary artery disease with prior history of four-vessel bypass with a failed right coronary and left circumflex grafts. Patent LIND to the LAD. Prior PCI to the RCA. 2. Hypertension 3. History of severe PAD with known left external iliac disease as well as severe bilateral SFA disease and significant popliteal trifurcation disease 4. Dyslipidemia Current Medications Current Medications Current Medications Heparin Sodium/ Sodium Chloride 1,500 ml @ As Directed STK-MED ONCE .ROUTE ; Start 08/12/20 at 07:34; Stop 08/12/20 at 07:35; Status DC Iodixanol (Visipaque 320) 100 ml STK-MED ONCE .ROUTE ; Start 08/12/20 at 07:34; Stop 08/12/20 at 07:34; Status DC Lidocaine HCl (Lidocaine 1% 20ml Vial) 20 ml STK-MED ONCE .ROUTE ; Start 08/12/20 at 07:34; Stop 08/12/20 at 07:34; Status DC Allergies Allergies Allergies Coded Allergies Type Severity Reaction Last Updated Verified No Known Drug Allergies 07/15/17 No Social History Comments No alcohol, tobacco or illicit drug use. Family History Comments Noncontributory ROS Review of System Negative for 10-14 systems reviewed unless otherwise mentioned above in HPI Physical Exam General: Alert, Oriented X3 HEENT: Atraumatic Lungs: Clear to auscultation Heart: Regular rate CHEST: Clear to auscultation Abdomen: Normal bowel sounds Extremities: No clubbing, Other (He has 2+ femoral pulses, nonpalpable po pliteal and pedal pulses. There is no significant edema. His right lower extremity has scar tissue from a previous fracture and skin changes.) Labs Labs Laboratory Tests Test 08/12/20 07:30 White Blood Count 5.0 x10^3/uL (4.0-11.0) Red Blood Count 4.30 x10^6/uL (4.30-5.70) Hemoglobin 13.2 g/dL (13.0-17.5) Hematocrit 39.4 % (39.0-53.0) Mean Corpuscular Volume 92 fL (79-100) Mean Corpuscular Hemoglobin 31 pg (25-35) Mean Corpuscular Hemoglobin Concent 34 g/dL (31-37) Red Cell Distribution Width 12.9 % (11.5-14.5) Platelet Count 246 x10^3/uL (140-400) Laboratory Tests Test 08/12/20 07:30 White Blood Count 5.0 x10^3/uL (4.0-11.0) Red Blood Count 4.30 x10^6/uL (4.30-5.70) Hemoglobin 13.2 g/dL (13.0-17.5) Hematocrit 39.4 % (39.0-53.0) Mean Corpuscular Volume 92 fL (79-100) Mean Corpuscular Hemoglobin 31 pg (25-35) Mean Corpuscular Hemoglobin Concent 34 g/dL (31-37) Red Cell Distribution Width 12.9 % (11.5-14.5) Platelet Count 246 x10^3/uL (140-400) Images Images Previous aortogram and recent duplex study reviewed. ECG EKG: NSR VTE Prophylaxis Ordered VTE Prophylaxis Devices: No VTE Pharmacological Prophylaxi: No Assessment/Plan Assessment/Plan 1. [place] category 3 lifestyle limiting claudication. Discussed risks and benefits of aortogram with runoff. Patient willing to proceed. Justicifation of Admission Dx: Justifications for Admission: Justification of Admission Dx: N/A MINO MORRIS MD August 12, 2020 08:08
[2020-08-12 08:11] LABS: CALCIUM 8.8 mg/dL (8.5-10.1); CREATININE 1.7 mg/dL (0.7-1.3); GFR 47.5; POTASSIUM 3.8 mmol/L (3.5-5.1)
[2020-08-12] MEDS ORDERED: MIDAZOLAM HCL/PF 2 MG/2 ML VIAL. ONE (08:13)
[2020-08-12] MEDS ORDERED: fentaNYL PF VIAL 100 MCG/2 ML VIAL ONE ×2 (08:14→10:03)
[2020-08-12] MEDS ORDERED: LIDOCAINE 1% Multi-Dose 20 ML VIAL. INJ ONE (08:15)
[2020-08-12] MEDS ORDERED: fentaNYL PF VIAL 100 MCG/2 ML VIAL IV ONE (08:15)
[2020-08-12] MEDS ORDERED: MIDAZOLAM HCL/PF 2 MG/2 ML VIAL. IV ONE (08:15)
[2020-08-12] MEDS ORDERED: IODIXANOL 320 MG/ML 100 ML VIAL. IART ONE (08:15)
[2020-08-12] MEDS ORDERED: HEPARIN for IV BOLUS 10,000 UNIT/10 ML VIAL. ONE (08:16)
[2020-08-12] MEDS ORDERED: ATOR20TA58 PO (08:25)
[2020-08-12] MEDS ORDERED: HEPARIN for IV BOLUS 10,000 UNIT/10 ML VIAL. IV ONE (09:00)
[2020-08-12] MEDS ORDERED: PRASUGREL 10 MG TABLET. PO SCH (10:30)
[2020-08-12] MEDS ORDERED: ASPIRIN CHEWABLE 81 MG TABLET. PO ONE (10:30)
[2020-08-12] MEDS ORDERED: METOPROLOL TART IMMED RELEASE 25 MG TABLET. PO ONE (10:30)
[2020-08-12] MEDS ORDERED: ISOSORBIDE MONONITRATE ER 30 MG TAB.ER.24H PO SCH (10:30)
[2020-08-12] MEDS ORDERED: fentaNYL PF VIAL 100 MCG/2 ML VIAL IVP ONE (12:45)
[2020-08-12] MEDS ORDERED: CYCLOBENZAPRINE 10 MG TABLET. PO ONE (12:45)
[2020-08-12] MEDS ORDERED: LIDOCAINE 2%/EPI 1:100,000 20 ML VIAL. ONE (13:23)
[2020-08-12] MEDS ORDERED: LIDOCAINE 2%/EPI 1:100,000 20 ML VIAL. IJ ONE (13:30)
--- NOTE | 2020-08-12 15:13 | NUR ---
no bleeding noted in right groin site. Safeguard dressing dc'd and Tegaderm applied. Pt ambulated and tolerated PO. Discharge instructions reviewed with patient and family. PIV dc'd. Pt home with family in private vehicle
--- NOTE | 2020-08-12 16:52 | CARD ---
MR#: [id number] Date of Study: 08/12/2020 Ordering Physician: MINO BRYANT, Referring Physician: MINO BRYANT, Tech: Karthik Clark RT(R)() APPROVED REPORT Patient StatusOUT-PATIENT Welfare Worker: Karthik Clark RT(R)() Procedure(s) performed: FL TIME: 14.9 MINS DOSE: 157 GYCM2 CONTRAST: 108 ML MODERATE SEDATION: 107 MINUTES Aortogram with bilateral run-off PVI with IVUS guidance of the GAGANDEEP. CASE TECHNIQUE After explaining the risks, benefits, and alternative options, informed consent was obtained from the patient. IV conscious sedation was used throughout procedure with appropriate monitoring and was per formed in the presence of a registered nurse who was an independent trained observer other than the gelacio bush performing the procedure. During this case, Fluoroscopy and low osmolar contrast were used f or imaging. Specimen(s) Removed: N/A Estimated Blood loss: 15 cc's. During the procedure heparin was used for anticoagulation. PROCEDURE NARRATIVE Clinical information: 75-year-old male who presented to the office in the setting of lifestyle limiti ng claudication. He was taken to the angiographic suite after duplex ultrasound confirmed severe mul tilevel lower extremity arterial disease. Procedure details: After appropriate informed consent and discussion with the patient, his and daughter he was brou ght to the catheterization laboratory. The right groin was prepped and draped in usual sterile fashi on. Under 1% lidocaine local anesthesia a 6 Belgian sheath was placed in the right common femoral art magnus with moderate difficulty due to prior scar tissue and atherosclerosis. Next, diagnostic angiogra phy was performed with a 5 Belgian Omni Flush catheter. The Omni Flush catheter was used to engage th e contralateral common iliac artery and a Glidewire was used to navigate the iliac vasculature. The Omni Flush catheter was exchanged for a 4 Belgian angled glide catheter which was placed in the common femoral artery and left lower extremity runoff angiography was obtained. Findings: Aorta mild diffuse irregularities without focal obstruction Right renal artery is widely patent Left renal artery is not well visualized Right common iliac artery has mild diffuse irregularities of up to 20% Right external iliac artery has a long proximal 50% stenosis Right internal iliac artery is severely diffusely diseased Right common femoral artery has mild diffuse irregularities of up to 30% Right SFA is occluded proximally and is reconstituted at the level of the abductor canal Right tibioperoneal trunk demonstrates severe disease. The distal vessels were not well visualized Left common iliac has a proximal 30% stenosis. Left external iliac artery has a proximal 90% stenosis Left internal iliac artery has significant diffuse disease of greater than 75% Left common femoral artery has mild diffuse irregularities of up to 30% Left SFA has significant diffuse disease of up to 90%. Left popliteal artery has mild luminal irregularities Left tibioperoneal trunk has severe disease involving the trifurcation with one-vessel runoff in the form of peroneal artery. The takeoff of the anterior and posterior tibial vessels were not clearly v isualized without any significant distal reconstitution. Interventional technique: The patient had significant vascular disease 3 years ago and the current angiogram is similar in most respects in the bilateral lower extremities. Due to the patient significant lifestyle limiting symp toms and in an effort to help delineate whether his pain is mostly neuropathic or vascular in nature a decision was made to stent the left external iliac artery. The 5 Belgian sheath was exchanged for a 6 Belgian [employer] destination sheath. Heparin was used for anticoagulation. A Glidewire was used to cross the iliac lesion. The lesion was then angioplastied with a 6 x 20 mm [place] balloon. Next a i ntravascular ultrasound catheter was advanced to the iliac vessels and a intravascular ultrasound fang dy revealed the external iliac dimensions to be approximately 9 mm in diameter. The iliac lesion was then stented with a Omnilink Elite 9.0 x 29 mm bare-metal stent deployed at 8 vishnu. The stent was th en postdilated with an 8 mm balloon at 10 vishnu. At case completion there was excellent stent expansio n with LIVIA-3 flow in the vessel and no evidence of guide or wire related complications. The case wa s also reviewed with our vascular surgery colleagues as they have previously seen him. In light of t he fact that the patient is mostly clotted and cannot without any significant critical limb ischemia we will plan for a trial of therapy with treatment of the iliac and determine if he has any significa nt improvement at which point he could return for further high risk intervention as needed. Other op tions would include bypass surgery although they are limited given his prior vein harvesting for jones nary artery bypass surgery. The patient is on aspirin and prasugrel therapy. This will be continued postoperatively. Conclusion 1. [place] category 3 claudication of the bilateral lower extremities 2. Severe multilevel bilateral lower extremity arterial disease 3. Successful peripheral vascular intervention with IVUS guidance of the left external iliac artery with placement of a 9.0 x 29 mm Omnilink Elite stent. Recommendations 1. Continue dual antiplatelet therapy 2. Follow-up with vascular surgery for further evaluation. If he continues to have significant life style limiting claudication after review with vascular surgery we will likely bring him back to the e ndovascular suite for high risk peripheral vascular intervention of the left lower extremity, otherwi se if he does well with his iliac intervention we will continue medical therapy. 3. He will follow-up with Dr. Hernández for further assessment of his dyspnea. Signed by : Mino Bryant, Electronically Approved : 08/12/2020 16:52:44
== END 2020-08-12 15:28 | disposition home or self-care (01) ==
LOC: CCL 07:17
PROVIDERS: ATTEND Internal Medicine Cardiovascular Disease
DX: I70.213 Atherosclerosis of native arteries of extremities with intermittent claudication, bilateral legs (principal); I25.10 Atherosclerotic heart disease of native coronary artery without angina pectoris; I10 Essential (primary) hypertension; E78.00 Pure hypercholesterolemia, unspecified; K21.9 Gastro-esophageal reflux disease without esophagitis; M19.90 Unspecified osteoarthritis, unspecified site; Z79.02 Long term (current) use of antithrombotics/antiplatelets; Z87.891 Personal history of nicotine dependence; Z79.899 Other long term (current) drug therapy; Z98.890 Other specified postprocedural states
CPT/HCPCS: 36415; 37221; 37252; 75625; 75716; 80048; 85027; 85347; 85610; 99152; 99153; C1725; C1769; C1876; C1892; C1894; J1644; J2250; J3010; J3490; Q9967

== ENCOUNTER → 2021-02-11 | Outpatient (CLI) | payer MEDICARE, OTHER ==
[2020-08-12 14:15] VITALS: BP 145/80
[~2021-02-11] MED LIST changes: +CYCL10TA19 PO; -CYCL10TA2 PO; +POTA-121 PO; -POTA20TA4 PO; +REGADENOSON 0.4 MG/5 ML DISP.SYRIN. IV ONE
--- NOTE | 2021-02-11 12:45 | RAD ---
MR#: [id number] Date of Study: 02/11/2021 Ordering Physician: GABY TROTTER, Referring Physician: HASEEB HEARN Tech: RT Jayden (R) (N) APPROVED REPORT Test Type: Pharmacological Stress Nurse/Tech: Roya Jerome RN Test Indications: S/P CABG Cardiac History: Hypertension, Smoker, CABG 2017 Medications: See EMR Medical History: See EMR Resting ECG: SR w/ PVC's. Inverted T waves in leads I, II, III, AVF, V3, V4, V5, V6. Resting Heart Rate: 64 bpm Resting Blood Pressure: 175/81mmHg Pretest Chest Pain: No chest pain Nurse/Tech Notes Lungs CTA, diminished. Murmur. Pharm. Details Pharmacologic stress testing was performed using 0.4mg per 5ml of regadenoson given intravenously ove r 7-10 seconds. Stress Symptoms Flushing, SOA. Resolved by end of recovery period. POST EXERCISE Reason for Termination: Infusion complete Target HR: No Max HR: 77 bpm Max Blood Pressure: 191/72mmHg Blood Pressure response to exercise: Normal blood pressure response during stress. Heart Rate response to exercise: WNL Chest Pain: No. Arrhythmia: No. ST Change: No. INTERPRETATION Stress EKG Conclusion: Baseline EKG showed sinus rhythm with left ventricular hypertrophy and repolar ization abnormalities. Nondiagnostic changes at peak stress. No arrhythmias. Imaging Protocol IMAGE PROTOCOL: Rest Tc-99m/stress Tc-99m 1 day Rest: Stress: Viability: Radiopharm.Tc99m [id number] Sestamibi Dose10.3mCi 31mCi Duration 13min. 13min. Img Date 02/11/2021 02/11/2021 Inj-Img [id number]. 60min. Rest Admin Site:IV - Right AntecubitalAdministrator:RT Jayden (R)(N) Stress Admin Site: IV - Right AntecubitalAdministrator: RT Jayden (R)(N) STRESS DATA End Diast. Vol.108.0mlLVEDV index BSA51.0ml End Syst. Vol.39.0mlLVESV index BSA18.0ml Myocardial Crko053.0gEject. Xcnpdsjl56.0% Stress Scores Regional WT2.00Summed WT25.00 Regional WM0.00Summed WM8.00 LV Perfusion Scintigraphic images showed moderate reversible defect involving the lateral wall extending into the anterolateral wall consistent with ischemia. Wall Motion Abnormal septal wall motion probably secondary to prior CABG. The ejection fraction is preserved and estimated at 55%. LV Perf. Quant 17 Seg. SSS16.00 17 Seg. SRS9.00 17 Seg. SDS7.00 Stress Defect Extent (% LAD)5.00Rest Defect Extent (% LAD)0.00Rev. Defect Extent (% LAD)5.00 Stress Defect Extent (% LCX) 96.30Rest Defect Extent (% LCX)76.30Rev. Defect Extent (% LCX)58.80 Stress Defect Extent (% RCA)0.00Rest Defect Extent (% RCA)2.20Rev. Defect Extent (% RCA)0.00 Stress Defect Extent (% JULIANA)28.50Rest Defect Extent (% JULIANA)16.10Rev. Defect Extent (% JULIANA)21.10 Conclusion 1. Regadenoson cardioisotope stress test showed moderate amount of ischemia involving the lateral wal l and extending into the anterolateral wall. 2. Abnormal septal wall motion probably secondary to prior CABG. The ejection fraction is preserved and estimated at 55%. 3. Intermediate risk for cardiac events. Signed by : Kristopher Parrish, Electronically Approved : 02/11/2021 12:45:31
== END ==
LOC: NM 08:19
PROVIDERS: ATTEND Internal Medicine Cardiovascular Disease
DX: I25.9 Chronic ischemic heart disease, unspecified (principal); Z95.1 Presence of aortocoronary bypass graft
CPT/HCPCS: 78452; 93017; A9500; J2785